=== PATIENT | male | born 1940 | race Caucasian/White ===

== ENCOUNTER 2019-03-12 13:35 | Observation (INO) ==
--- NOTE | 2019-03-12 13:47 | Emergency Department Note ---
Disposition Clinical Impression: [place] (acute kidney injury), Acute renal insufficiency, Dehydration, Weakness UTI (urinary tract infection) Qualifiers: Urinary tract infection type: site unspecified Hematuria presence: without hematuria Qualified Code(s): N39.0 - Urinary tract infection, site not specified Disposition: Admitted As Inpatient Condition: Fair Time of Disposition: 15:36 General Adult HPI - General Chief complaint: ED General Medical Stated complaint: Weakness Time Seen by Provider: 03/12/19 13:43 Source: patient, EMS Mode of arrival: EMS Limitations: no limitations Nursing Notes Reviewed: Yes Vital Signs Reviewed: Yes - History of Present Illness HPI Narrative: Mr. Lynn is a 78M who presents today after an episode of choking on a drink of water this morning. He does have a history of A. fib on anticoagulation, and a CVA from 2 weeks ago. He denies any headache, confusion, facial droop, slurred speech, chest pain, shortness of breath, fever, chills, or recent illnesses. He does report increased generalized weakness. He does report continued chronic right shoulder pain, unchanged from baseline. Pain Scale: 3 - Related Data Home Medications Medication Instructions Recorded Confirmed Atorvastatin Calcium [Lipitor] 80 mg PO DAILY 12/27/18 03/12/19 Budesonide/Formoterol 160/4.5 2 puff IH BID 12/27/18 03/12/19 [Symbicort 160/4.5] Duloxetine HCl [Cymbalta] 60 mg PO QAM 12/27/18 03/12/19 Finasteride [Proscar] 5 mg PO QPM 12/27/18 03/12/19 Isosorbide MONOnitrate [Isosorbide 240 mg PO QPM 12/27/18 03/12/19 Mononitrate ER] Montelukast [Singulair] 10 mg PO QPM 12/27/18 03/12/19 Nitroglycerin 0.4 mg PO Q5M PRN MDD [id number] CALL 12/27/18 03/12/19 911 Omeprazole [PriLOSEC] 20 mg PO QPM 12/27/18 03/12/19 Zolpidem [Ambien] 10 mg PO HS 12/27/18 03/12/19 amLODIPine [Norvasc] 5 mg PO DAILY 12/27/18 03/12/19 Buspirone HCl [Buspar] 7.5 mg PO QPM 02/27/19 03/12/19 Cholecalciferol (D-3) [Vitamin D] 1,000 unit PO DAILY 02/27/19 03/12/19 Dabigatran [Pradaxa] 75 mg PO BID 02/27/19 03/12/19 Furosemide [Lasix] 20 mg PO QAM 02/27/19 03/12/19 Multivit-Min/Folic/Vit K/Lycop 1 tab PO DAILY 02/27/19 03/12/19 [Men's 50 Plus Multivitamin Tab] ALPRAZolam [Xanax 1 MG Tablet] 1 mg PO BID PRN 03/12/19 03/12/19 Previous Rx's Medication Instructions Recorded Acetaminophen [Tylenol] 650 mg PO Q6HR PRN tablet 02/28/19 Carvedilol [Coreg] 12.5 mg PO BIDWM tablet 02/28/19 Clopidogrel [Plavix] 75 mg PO DAILY tablet 02/28/19 Docusate [Colace] 100 mg PO BID PRN capsule 02/28/19 Losartan [Cozaar] 100 mg PO DAILY #30 tablet 02/28/19 Allergies Allergy/AdvReac Type Severity Reaction Status Date / Time epinephrine AdvReac See Verified 02/08/19 09:49 Comments Tizanidine AdvReac Dizziness Verified 02/08/19 09:49 All systems ED: reviewed and negative except as stated. Review of Systems: As Per HPI Constitutional: Reports: weakness. Denies: fever, chills Eyes: Denies: vision change Cardiovascular: Denies: chest pain, palpitations, edema, syncope Respiratory: Denies: cough, dyspnea, wheezes Gastrointestinal: Denies: abdominal pain, nausea, vomiting, diarrhea, constipation, hematemesis, melena, hematochezia Neurological: Reports: weakness. Denies: headache, numbness, paresthesias, confusion, vertigo Past Medical History - Past Medical History Attestation: Yes The following information was validated with the patient. Source: patient, old records reviewed, nursing notes reviewed Medical history: Reports: atrial fibrillation, COPD, coronary artery disease, CVA, GERD, hyperlipidemia, hypertension, renal disease Surgical history: Reports: angioplasty/stent Psychiatric history: Reports: anxiety - Social History Smoking Status: Former smoker Smokeless Tobacco Status: No Alcohol use: Reports: none Drug use: Reports: none Physical Exam Constitutional: Well-developed elderly male in no acute distress Head: Normocephalic, atraumatic Eyes: PERRL, EOMI, sclera anicteric Lungs: Clear to auscultation bilaterally. Nonlabored breathing. No wheezes, r ales, or rhonchi noted. Cardiac: Irregularly irregular rhythm. +S1 +S2 No murmurs, clicks, or rubs noted. GI: Abdomen soft, nontender, nondistended. Extremities: Warm, radial pulses +2 and symmetrical. No cyanosis, pedal edema, or calf tenderness. Neuro: Alert and oriented 3. No focal deficits. Strength 5/5 in all 4 extremities. CN II-XII intact. Sensation intact. No facial droop. Normal speech. Skin: Warm, dry, and intact. - General Limitations: no limitations General appearance: alert, in no apparent distress Course Course Narrative: Initial history and physical exam were unclear for etiology of weakness. CVA less likely with no focal neurological deficits, no slurred speech, no facial droop, and no pronator drift. Speech is clear and pt requested a drink of water shortly after arrival in the ED. Initial evaluation included CBC, BMP, PT/INR, troponin, EKG, chest x-ray, CT head without contrast. Labs revealed [place] with eGFR of 36 which is decreased when compared to patient's baseline eGFR upper 40s-50s with known CKD stage III. Urinalysis was suggestive of UTI. Reflex culture was sent. Pt was subsequently started on 100mL/hr IV fluids with close monitoring with history of CHF and afib. Also started 1 g Rocephin daily. These results were discussed with the patient and recommended admission for [place] with UTI. Patient is agreeable to this treatment plan. Discussed patient's case with hospitalist, Dr. Garrido, who accepted the patient for admission. P atient stable for transfer to floor. - Reevaluation(s) Reevaluation #1: Pt has no new or acute complaints at this time. Discussed labs, EKG, and imaging results. Pt reports he has CKD stage 3 at baseline, however we discussed decreased in eGFR compared to previous labs and visits. Time: 15:27 - Consultations Consultation #1: Discussed pt's case with Dr Garrido, hospitalist, who accepted the patient for admission for [place] and UTI. Time: 15:34 Vital Signs Temperature 98.0 F 03/12/19 13:37 Pulse Rate 93 03/12/19 13:37 Respiratory Rate 20 03/12/19 13:37 Blood Pressure 109/84 03/12/19 13:37 O2 Sat by Pulse Oximetry 99 03/12/19 13:37 Temperature 98.0 F 03/12/19 13:37 Pulse Rate 91 03/12/19 14:47 Respiratory Rate 20 03/12/19 16:08 Blood Pressure 119/81 03/12/19 16:08 O2 Sat by Pulse Oximetry 97 03/12/19 14:47 Oxygen Delivery Oxygen Delivery Room Air Medical Decision Making - Medical Records Medical records reviewed: Yes I reviewed the patient's medical records. - Lab Data Lab results reviewed: Yes I reviewed the patient's lab results. Result diagrams: 03/12/19 13:53 03/12/19 13:53 Lab Results 03/12/19 03/12/19 03/12/19 Range/Units 13:53 13:53 13:53 WBC 7.7 (4.3-11.1) K/mcL RBC 5.40 (4.19-5.50) M/mcL Hgb 15.6 (12.9-16.9) g/dL Hct 46.5 (37.5-50.1) % MCV 86.1 (83.0-100.0) fL MCH 28.9 (28.0-33.3) pg MCHC 33.5 (31.6-35.5) g/dL RDW 14.6 H (11.5-14.5) % Plt Count 156 (140-400) K/mcL MPV 10.1 (9.4-12.4) fL Immature Gran % 0.4 (0-4) % Seg Neutrophils % 73.2 % Lymphocytes % 10.2 % Monocytes % 14.4 % Eosinophils % 1.2 % Basophils % 0.6 % Neutrophils # 5.7 (1.6-8.9) K/mcL Lymphocytes # 0.8 (0.6-4.6) K/mcL Monocytes # 1.1 (0.0-1.3) K/mcL Eosinophils # 0.1 (0.0-0.6) K/mcL Basophils # 0.1 (0.0-0.2) K/mcL PT 14.1 H (9.4-12.1) Seconds INR 1.3 Sodium 133 L (136-145) mEq/L Potassium 4.6 (3.5-5.1) mEq/L Chloride 102 (98-107) mEq/L Carbon Dioxide 25 (23-29) mEq/L BUN 31 H (8-23) mg/dL Creatinine 1.85 H (0.70-1.30) mg/dL Est GFR ( Amer) 43 L (> 60) Est GFR (Non-Af Amer) 36 L (> 60) BUN/Creatinine Ratio 17 (6-26) Glucose 104 (70-105) mg/dL Calculated Osmolality 283 (280-300) Lactic Acid (0.5-2.2) mmol/L Calcium 9.2 (8.6-10.3) mg/dL Total Bilirubin 1.0 (0.3-1.0) mg/dL AST 16 (13-39) Units/L ALT 23 (7-52) Units/L Alkaline Phosphatase 86 (34-104) Units/L Troponin I < 0.03 (< 0.04) ng/mL Serum Total Protein 6.4 (6.4-8.9) g/dL Albumin 3.7 (3.5-5.7) g/dL Globulin 2.7 (2.4-3.5) g/dL Albumin/Globulin Ratio 1.4 (1.1-2.2) Urine Color (Yellow) Urine Clarity (Clear) Urine pH (5.0-8.0) pH Units Ur Specific [place] (1.010-1.025) Urine Protein (Neg-Trace) mg/dL Urine Glucose (UA) (Normal) mg/dL Urine Ketones (Negative) mg/dL Urine Blood (Negative) Urine Nitrite (Negative) Urine Bilirubin (Negative) Urine Urobilinogen (Normal) mg/dL Ur Leukocyte Esterase (Negative) Urine Microscopic RBC (0-3) per hpf Urine Microscopic WBC (0-3) per hpf Ur Squamous Epith Cells (None-Few) per lpf Amorphous Sediment (Few) Urine Bacteria (None-Few) per hpf Hyaline Casts (None-Few) per lpf Ur Culture Indicated? (NO) 03/12/19 03/12/19 Range/Units 13:53 14:24 WBC (4.3-11.1) K/mcL RBC (4.19-5.50) M/mcL Hgb (12.9-16.9) g/dL Hct (37.5-50.1) % MCV (83.0-100.0) fL MCH (28.0-33.3) pg MCHC (31.6-35.5) g/dL RDW (11.5-14.5) % Plt Count (140-400) K/mcL MPV (9.4-12.4) fL Immature Gran % (0-4) % Seg Neutrophils % % Lymphocytes % % Monocytes % % Eosinophils % % Basophils % % Neutrophils # (1.6-8.9) K/mcL Lymphocytes # (0.6-4.6) K/mcL Monocytes # (0.0-1.3) K/mcL Eosinophils # (0.0-0.6) K/mcL Basophils # (0.0-0.2) K/mcL PT (9.4-12.1) Seconds INR Sodium (136-145) mEq/L Potassium (3.5-5.1) mEq/L Chloride (98-107) mEq/L Carbon Dioxide (23-29) mEq/L BUN (8-23) mg/dL Creatinine (0.70-1.30) mg/dL Est GFR ( Amer) (> 60) Est GFR (Non-Af Amer) (> 60) BUN/Creatinine Ratio (6-26) Glucose (70-105) mg/dL Calculated Osmolality (280-300) Lactic Acid 1.2 (0.5-2.2) mmol/L Calcium (8.6-10.3) mg/dL Total Bilirubin (0.3-1.0) mg/dL AST (13-39) Units/L ALT (7-52) Units/L Alkaline Phosphatase (34-104) Units/L Troponin I (< 0.04) ng/mL Serum Total Protein (6.4-8.9) g/dL Albumin (3.5-5.7) g/dL Globulin (2.4-3.5) g/dL Albumin/Globulin Ratio (1.1-2.2) Urine Color Yellow (Yellow) Urine Clarity Cloudy A (Clear) Urine pH 5.5 (5.0-8.0) pH Units Ur Specific [place] 1.021 (1.010-1.025) Urine Protein 100 H (Neg-Trace) mg/dL Urine Glucose (UA) Normal (Normal) mg/dL Urine Ketones Negative (Negative) mg/dL Urine Blood Negative (Negative) Urine Nitrite Negative (Negative) Urine Bilirubin Negative (Negative) Urine Urobilinogen Normal (Normal) mg/dL Ur Leukocyte Esterase Large H (Negative) Urine Microscopic RBC 0-3 (0-3) per hpf Urine Microscopic WBC 50-100 H (0-3) per hpf Ur Squamous Epith Cells Many H (None-Few) per lpf Amorphous Sediment Few (Few) Urine Bacteria None Seen (None-Few) per hpf Hyaline Casts Few (None-Few) per lpf Ur Culture Indicated? NO. A (NO) - Radiology Data Radiology results reviewed: Yes I reviewed the patient's radiology results. Chest X-Ray 03/12/19 13:43 IMPRESSION: Mild elevation of the right hemidiaphragm. Otherwise, stable chest D/ / Adebayo Lafleur MD / Adebayo Lafleur MD Interpreting Provider: Adebayo Lafleur MD Head CT 03/12/19 13:45 IMPRESSION: No acute intracranial abnormality. Senescent changes. D/ / Ron Mendoza / Ron Mendoza Interpreting Provider: Ron Mendoza - EKG Data EKG #1 EKG attestation: Yes I reviewed and interpreted this EKG. Rhythm: A.Fib, PVC's [place]/QRS: left axis deviation When compared to previous EKG there are: no significant changes Attestation Statement - Attestation Attestation: I, Gregory Doe DO, examined this patient [id number] and my medical decision-making was reviewed with Elías Black PGY-1, Resident Physician. I agree with the documented findings, disposition and treatment plan as described except to the extent set forth below. I personally supervised and was present for the gregorio/critical portions of the procedures completed by the resident do cumented below. Please see my progress notes for details.
[2019-03-12 14:02] LABS: Hematocrit 46.5 % (37.5-50.1); Hemoglobin 15.6 g/dL (12.9-16.9); Mean Corpuscular HGB Conc 33.5 g/dL (31.6-35.5); Mean Corpuscular Hemoglobin 28.9 pg (28.0-33.3); Mean Corpuscular Volume 86.1 fL (83.0-100.0); Mean Platelet Volume 10.1 fL (9.4-12.4); Platelet Count 156 K/mcL (140-400); Red Cell Distribution Width 14.6 % (11.5-14.5); Segmented Neutrophils % 73.2 %
[2019-03-12 14:03] LABS: Basophils # 0.1 K/mcL (0.0-0.2); Basophils % 0.6 %; Eosinophils # 0.1 K/mcL (0.0-0.6); Eosinophils % 1.2 %; Immature Granulocytes % 0.4 % (0-4); Lymphocytes # 0.8 K/mcL (0.6-4.6); Lymphocytes % 10.2 %; Monocytes # 1.1 K/mcL (0.0-1.3); Monocytes % 14.4 %; Neutrophils # 5.7 K/mcL (1.6-8.9)
[2019-03-12 14:09] LABS: INR 1.3; Prothrombin Time 14.1 Seconds (9.4-12.1)
--- NOTE | 2019-03-12 14:09 | Emergency Department Note ---
Disposition Clinical Impression: Acute renal insufficiency, Dehydration, Weakness UTI (urinary tract infection) Qualifiers: Urinary tract infection type: site unspecified Hematuria presence: without hematuria Qualified Code(s): N39.0 - Urinary tract infection, site not specified Disposition: Admitted As Inpatient Condition: Fair Forms: ED Satisfaction Letter, Work/School Release Time of Disposition: 15:37 General Adult HPI - General Chief complaint: ED General Medical Stated complaint: Weakness Time Seen by Provider: 03/12/19 13:43 Source: patient, EMS Mode of arrival: EMS Limitations: no limitations - History of Present Illness Pain Scale: 3 - Related Data Home Medications Medication Instructions Recorded Confirmed Atorvastatin Calcium [Lipitor] 80 mg PO DAILY 12/27/18 02/27/19 Budesonide/Formoterol 160/4.5 2 puff IH BID 12/27/18 02/27/19 [Symbicort 160/4.5] Duloxetine HCl [Cymbalta] 60 mg PO QAM 12/27/18 02/27/19 Finasteride [Proscar] 5 mg PO QPM 12/27/18 02/27/19 Isosorbide MONOnitrate [Isosorbide 240 mg PO QPM 12/27/18 02/27/19 Mononitrate ER] Montelukast [Singulair] 10 mg PO DAILY 12/27/18 02/27/19 Nitroglycerin 0.4 mg PO Q5M PRN MDD [id number] CALL 12/27/18 02/27/19 911 Omeprazole [PriLOSEC] 20 mg PO QPM 12/27/18 02/27/19 Zolpidem [Ambien] 10 mg PO HS 12/27/18 02/27/19 amLODIPine [Norvasc] 5 mg PO DAILY 12/27/18 02/27/19 Buspirone HCl [Buspar] 7.5 mg PO QPM 02/27/19 02/27/19 Cholecalciferol (D-3) [Vitamin D] 1,000 unit PO DAILY 02/27/19 02/27/19 Dabigatran [Pradaxa] 75 mg PO BID 02/27/19 02/27/19 Furosemide [Lasix] 20 mg PO QPM 02/27/19 02/27/19 Multivit-Min/Folic/Vit K/Lycop 1 tab PO DAILY 02/27/19 02/27/19 [Men's 50 Plus Multivitamin Tab] ALPRAZolam [Xanax 1 MG Tablet] 1 mg PO BID PRN 03/12/19 03/12/19 Previous Rx's Medication Instructions Recorded Acetaminophen [Tylenol] 650 mg PO Q6HR PRN tablet 02/28/19 Carvedilol [Coreg] 12.5 mg PO BIDWM tablet 02/28/19 Clopidogrel [Plavix] 75 mg PO DAILY tablet 02/28/19 Docusate [Colace] 100 mg PO BID PRN capsule 02/28/19 Losartan [Cozaar] 100 mg PO DAILY #30 tablet 02/28/19 Allergies Allergy/AdvReac Type Severity Reaction Status Date / Time epinephrine AdvReac See Verified 02/08/19 09:49 Comments Tizanidine AdvReac Dizziness Verified 02/08/19 09:49 Past Medical History - Past Medical History Medical history: Reports: atrial fibrillation, COPD, coronary artery disease, CVA, GERD, hyperlipidemia, hypertension, renal disease Surgical history: Reports: angioplasty/stent Psychiatric history: Reports: anxiety - Social History Smoking Status: Former smoker Smokeless Tobacco Status: No Alcohol use: Reports: none Drug use: Reports: none Physical Exam - General Limitations: no limitations General appearance: alert, in no apparent distress Course Vital Signs Temperature 98.0 F 03/12/19 13:37 Pulse Rate 93 03/12/19 13:37 Respiratory Rate 20 03/12/19 13:37 Blood Pressure 109/84 03/12/19 13:37 O2 Sat by Pulse Oximetry 99 03/12/19 13:37 Temperature 98.0 F 03/12/19 13:37 Pulse Rate 91 03/12/19 14:47 Respiratory Rate 16 03/12/19 14:47 Blood Pressure 109/75 03/12/19 14:47 O2 Sat by Pulse Oximetry 97 03/12/19 14:47 Oxygen Delivery Oxygen Delivery Room Air Medical Decision Making - Lab Data Result diagrams: 03/12/19 13:53 03/12/19 13:53 Lab Results 03/12/19 03/12/19 03/12/19 Range/Units 13:53 13:53 13:53 WBC 7.7 (4.3-11.1) K/mcL RBC 5.40 (4.19-5.50) M/mcL Hgb 15.6 (12.9-16.9) g/dL Hct 46.5 (37.5-50.1) % MCV 86.1 (83.0-100.0) fL MCH 28.9 (28.0-33.3) pg MCHC 33.5 (31.6-35.5) g/dL RDW 14.6 H (11.5-14.5) % Plt Count 156 (140-400) K/mcL MPV 10.1 (9.4-12.4) fL Immature Gran % 0.4 (0-4) % Seg Neutrophils % 73.2 % Lymphocytes % 10.2 % Monocytes % 14.4 % Eosinophils % 1.2 % Basophils % 0.6 % Neutrophils # 5.7 (1.6-8.9) K/mcL Lymphocytes # 0.8 (0.6-4.6) K/mcL Monocytes # 1.1 (0.0-1.3) K/mcL Eosinophils # 0.1 (0.0-0.6) K/mcL Basophils # 0.1 (0.0-0.2) K/mcL PT 14.1 H (9.4-12.1) Seconds INR 1.3 Sodium 133 L (136-145) mEq/L Potassium 4.6 (3.5-5.1) mEq/L Chloride 102 (98-107) mEq/L Carbon Dioxide 25 (23-29) mEq/L BUN 31 H (8-23) mg/dL Creatinine 1.85 H (0.70-1.30) mg/dL Est GFR ( Amer) 43 L (> 60) Est GFR (Non-Af Amer) 36 L (> 60) BUN/Creatinine Ratio 17 (6-26) Glucose 104 (70-105) mg/dL Calculated Osmolality 283 (280-300) Lactic Acid (0.5-2.2) mmol/L Calcium 9.2 (8.6-10.3) mg/dL Total Bilirubin 1.0 (0.3-1.0) mg/dL AST 16 (13-39) Units/L ALT 23 (7-52) Units/L Alkaline Phosphatase 86 (34-104) Units/L Troponin I < 0.03 (< 0.04) ng/mL Serum Total Protein 6.4 (6.4-8.9) g/dL Albumin 3.7 (3.5-5.7) g/dL Globulin 2.7 (2.4-3.5) g/dL Albumin/Globulin Ratio 1.4 (1.1-2.2) Urine Color (Yellow) Urine Clarity (Clear) Urine pH (5.0-8.0) pH Units Ur Specific [place] (1.010-1.025) Urine Protein (Neg-Trace) mg/dL Urine Glucose (UA) (Normal) mg/dL Urine Ketones (Negative) mg/dL Urine Blood (Negative) Urine Nitrite (Negative) Urine Bilirubin (Negative) Urine Urobilinogen (Normal) mg/dL Ur Leukocyte Esterase (Negative) Urine Microscopic RBC (0-3) per hpf Urine Microscopic WBC (0-3) per hpf Ur Squamous Epith Cells (None-Few) per lpf Amorphous Sediment (Few) Urine Bacteria (None-Few) per hpf Hyaline Casts (None-Few) per lpf Ur Culture Indicated? (NO) 03/12/19 03/12/19 Range/Units 13:53 14:24 WBC (4.3-11.1) K/mcL RBC (4.19-5.50) M/mcL Hgb (12.9-16.9) g/dL Hct (37.5-50.1) % MCV (83.0-100.0) fL MCH (28.0-33.3) pg MCHC (31.6-35.5) g/dL RDW (11.5-14.5) % Plt Count (140-400) K/mcL MPV (9.4-12.4) fL Immature Gran % (0-4) % Seg Neutrophils % % Lymphocytes % % Monocytes % % Eosinophils % % Basophils % % Neutrophils # (1.6-8.9) K/mcL Lymphocytes # (0.6-4.6) K/mcL Monocytes # (0.0-1.3) K/mcL Eosinophils # (0.0-0.6) K/mcL Basophils # (0.0-0.2) K/mcL PT (9.4-12.1) Seconds INR Sodium (136-145) mEq/L Potassium (3.5-5.1) mEq/L Chloride (98-107) mEq/L Carbon Dioxide (23-29) mEq/L BUN (8-23) mg/dL Creatinine (0.70-1.30) mg/dL Est GFR ( Amer) (> 60) Est GFR (Non-Af Amer) (> 60) BUN/Creatinine Ratio (6-26) Glucose (70-105) mg/dL Calculated Osmolality (280-300) Lactic Acid 1.2 (0.5-2.2) mmol/L Calcium (8.6-10.3) mg/dL Total Bilirubin (0.3-1.0) mg/dL AST (13-39) Units/L ALT (7-52) Units/L Alkaline Phosphatase (34-104) Units/L Troponin I (< 0.04) ng/mL Serum Total Protein (6.4-8.9) g/dL Albumin (3.5-5.7) g/dL Globulin (2.4-3.5) g/dL Albumin/Globulin Ratio (1.1-2.2) Urine Color Yellow (Yellow) Urine Clarity Cloudy A (Clear) Urine pH 5.5 (5.0-8.0) pH Units Ur Specific [place] 1.021 (1.010-1.025) Urine Protein 100 H (Neg-Trace) mg/dL Urine Glucose (UA) Normal (Normal) mg/dL Urine Ketones Negative (Negative) mg/dL Urine Blood Negative (Negative) Urine Nitrite Negative (Negative) Urine Bilirubin Negative (Negative) Urine Urobilinogen Normal (Normal) mg/dL Ur Leukocyte Esterase Large H (Negative) Urine Microscopic RBC 0-3 (0-3) per hpf Urine Microscopic WBC 50-100 H (0-3) per hpf Ur Squamous Epith Cells Many H (None-Few) per lpf Amorphous Sediment Few (Few) Urine Bacteria None Seen (None-Few) per hpf Hyaline Casts Few (None-Few) per lpf Ur Culture Indicated? NO. A (NO) Attestation Statement - Attestation Attestation: I, Gregory Doe DO, examined this patient [id number] and my medical decision-making was reviewed with Elías Black PGY-1, Resident Physician. I agree with the documented findings, disposition and treatment plan as described except to the extent set forth below. I personally supervised and was present for the gregorio/critical portions of the procedures completed by the resident documented below. Please see my progress notes for details. 78-year-old male presents via EMS for evaluation of generalized weakness and concern for possible CVA. Patient had a recent cerebrovascular incident earlier this month and was diagnosed by MRI. Patient denies any falls trauma or injury. He has not had any fevers or chills. He has not fallen or injured himself. Denies any chest pain or shortness of breath at this point. Denies any nausea vomiting or diarrhea. No specific vision changes but he does have a slight headache. He does chronically have right-sided shoulder pain and intermittent headaches at baseline. Patient is otherwise resting comfortably. He has continued all his home medications as they are previously prescribed including his anticoagulation Pradaxa. Vital signs were stable during transport. Patient is alert and oriented answering questions appropriately on arrival. Head is atraumatic. Pupils are equal and reactive. Extraocular muscles are intact. Oropharynx is patent. Trachea is midline. Lungs are clear to auscultation. Chronic atrial fibrillation is noted on evaluation this time. Abdomen is soft nontender nondistended with no pulsatile masses or lesions. Extremities are normal. Patient has no signs of swelling or asymmetry or weakness noted at this point. He has no reproducible facial asymmetry a slight amount of left-sided lip leg is noted but is unable to be confirmed as chronic or new at this time. He does not have any acute described neurologic symptoms at this point. Patient will be evaluated with a detailed workup looking for infectious etiology or metabolic derangements intracranial pathology that could account for his presenting described weakness and symptoms here today. Otherwise family will be contacted to confirm the presentation this point me asured the patient is acting appropriately. Patient is otherwise stable. CBC chemistry troponin and BNP blood cultures urinalysis will be collected this time. Fluids will be started. CT imaging the head and chest x-ray will be ordered. Disposition pending full workup and treatment course. See detailed documentation of the physical exam, medical intervention, medical decision- making and disposition in the resident physician's note. No critical care applied the patient's treatment course at this time. Symptomatic control and reevaluation will be established. 1445 Patient is found to have acute renal insufficiency. He also has what appears to be urinary tract infection. 1 g Rocephin will be given. Patient has been started on passive fluids with his known history of congestive heart failure and atrial fibrillation. Close monitoring will be completed at this point. Patient was asking for water when he first arrived here secondary to dry mouth's at this is consistent with his describes symptoms. Otherwise he is only complaining of generalized weakness and has not shown any acute neurologic deficits or symptoms. Patient will be monitored and admission process will be completed for dehydration and urinary tract infection 1515 Patient was discussed with the hospitalist Dr. Rankin. Detailed review the presentation symptoms medical history as well as medical intervention were discussed at length. No other acute concerns or issues noted this time. Patient is otherwise clinically stable. All the patient's presenting symptoms here today are secondary to his dehydration urinary tract infection and acute renal insufficiency. Patient will be monitored here in the emergency department until the admission process is completed.
[2019-03-12 14:25] LABS: Alanine Aminotransferase 23 Units/L (7-52); Albumin 3.7 g/dL (3.5-5.7); Albumin/Globulin Ratio 1.4 (1.1-2.2); Alkaline Phosphatase 86 Units/L (34-104); Aspartate Amino Transferase 16 Units/L (13-39); BUN/Creatinine Ratio 17 (6-26); Blood Urea Nitrogen 31 mg/dL (8-23); Calcium 9.2 mg/dL (8.6-10.3); Carbon Dioxide 25 mEq/L (23-29); Chloride 102 mEq/L (98-107); Globulin 2.7 g/dL (2.4-3.5); Glucose 104 mg/dL (70-105); Osmolality,Calculated 283 (280-300); Potassium 4.6 mEq/L (3.5-5.1); Sodium 133 mEq/L (136-145); Total Protein 6.4 g/dL (6.4-8.9); eGFR For Non-African Americans 36 (> 60)
[2019-03-12 14:26] LABS: Troponin I < 0.03 ng/mL (< 0.04)
[2019-03-12 14:37] LABS: Bilirubin,Urine Negative (Negative); Blood,Urine Negative (Negative); Clarity,Urine Cloudy (Clear); Color,Urine Yellow (Yellow); Glucose,Urine (UA) Normal (Normal); Ketones,Urine Negative (Negative); Leukocyte Esterase,Urine Large (Negative); Nitrite,Urine Negative (Negative); PH,Urine 5.5 pH Units (5.0-8.0); Protein,Urine 100 mg/dL (Neg-Trace); Specific Gravity,Urine 1.021 (1.010-1.025); Urobilinogen,Urine Normal (Normal)
[2019-03-12 14:40] LABS: Bacteria,Urine None Seen per hpf (None-Few); RBC,Urine 0-3 per hpf (0-3); Squamous Epithelial Cell,Urine Many per lpf (None-Few); WBC,Urine 50-100 per hpf (0-3)
[2019-03-12] MEDS ORDERED: 0.9 % Sodium Chloride 1,000 ML IVC SCH (14:45)
[2019-03-12 14:56] LABS: Amorphous Sediment,Urine Few (Few); Hyaline Casts,Urine Few per lpf (None-Few)
[2019-03-12] MEDS: cefTRIAXone 1,000 MG in Water for inj. (sterile) 20 ML 10 ML IVP SCH (15:07)
--- NOTE | 2019-03-12 16:12 | Internal Med History&Physical ---
<Adebayo Grajeda - Last Filed: 03/12/19 16:57> Date of Encounter: 03/12/19 Internal Medicine - H&P: HPI History of present illness: Mr. Lynn is a 78 year old male Internal Medicine - H&P: Meds Atorvastatin Calcium [Lipitor] 80 mg PO DAILY 12/27/18 [History] Budesonide/Formoterol 160/4.5 [Symbicort 160/4.5] 2 puff IH BID 12/27/18 [History] Duloxetine HCl [Cymbalta] 60 mg PO QAM 12/27/18 [History] Finasteride [Proscar] 5 mg PO QPM 12/27/18 [History] Isosorbide MONOnitrate [Isosorbide Mononitrate ER] 240 mg PO QPM 12/27/18 [History] Montelukast [Singulair] 10 mg PO QPM 12/27/18 [History] Nitroglycerin 0.4 mg PO Q5M PRN MDD [id number] CALL 911 12/27/18 [History] Omeprazole [PriLOSEC] 20 mg PO QPM 12/27/18 [History] Zolpidem [Ambien] 10 mg PO HS 12/27/18 [History] amLODIPine [Norvasc] 5 mg PO DAILY 12/27/18 [History] Buspirone HCl [Buspar] 7.5 mg PO QPM 02/27/19 [History] Cholecalciferol (D-3) [Vitamin D] 1,000 unit PO DAILY 02/27/19 [History] Dabigatran [Pradaxa] 75 mg PO BID 02/27/19 [History] Furosemide [Lasix] 20 mg PO QAM 02/27/19 [History] Multivit-Min/Folic/Vit K/Lycop [Men's 50 Plus Multivitamin Tab] 1 tab PO DAILY 02/27/19 [History] Acetaminophen [Tylenol] 650 mg PO Q6HR PRN tablet 02/28/19 [Rx] Carvedilol [Coreg] 12.5 mg PO BIDWM tablet 02/28/19 [Rx] Clopidogrel [Plavix] 75 mg PO DAILY tablet 02/28/19 [Rx] Docusate [Colace] 100 mg PO BID PRN capsule 02/28/19 [Rx] Losartan [Cozaar] 100 mg PO DAILY #30 tablet 02/28/19 [Rx] ALPRAZolam [Xanax 1 MG Tablet] 1 mg PO BID PRN 03/12/19 [History] Allergy/AdvReac Type Severity Reaction Status Date / Time epinephrine AdvReac See Verified 02/08/19 09:49 Comments Tizanidine AdvReac Dizziness Verified 02/08/19 09:49 All Systems PM: A 10-system review of systems was performed and is negative for pertinent findings except as documented above in the HPI. - Constitutional Vitals: Temp Pulse Resp BP Pulse Ox 98.0 F 91 20 119/81 97 03/12/19 13:37 03/12/19 14:47 03/12/19 16:08 03/12/19 16:08 03/12/19 14:47 Internal Med - H&P Results - Labs CBC & Chem 7: 03/12/19 13:53 03/12/19 13:53 Labs: Short CBC 03/12/19 Range/Units 13:53 WBC 7.7 (4.3-11.1) K/mcL Hgb 15.6 (12.9-16.9) g/dL Hct 46.5 (37.5-50.1) % Plt Count 156 (140-400) K/mcL Neutrophils # 5.7 (1.6-8.9) K/mcL BMP 03/12/19 13:53 Sodium 133 L Potassium 4.6 Chloride 102 Carbon Dioxide 25 BUN 31 H Creatinine 1.85 H Glucose 104 Calcium 9.2 Cardiac Enzymes 03/12/19 Range/Units 13:53 Troponin I < 0.03 (< 0.04) ng/mL Liver Function 03/12/19 Range/Units 13:53 Total Bilirubin 1.0 (0.3-1.0) mg/dL AST 16 (13-39) Units/L ALT 23 (7-52) Units/L Alkaline Phosphatase 86 (34-104) Units/L Albumin 3.7 (3.5-5.7) g/dL Urine 03/12/19 Range/Units 14:24 Urine Color Yellow (Yellow) Urine Clarity Cloudy A (Clear) Urine pH 5.5 (5.0-8.0) pH Units Ur Specific [place] 1.021 (1.010-1.025) Urine Protein 100 H (Neg-Trace) mg/dL Urine Glucose (UA) Normal (Normal) mg/dL - Impressions ITS Impressions Chest X-Ray 03/12/19 13:43 IMPRESSION: Mild elevation of the right hemidiaphragm. Otherwise, stable chest D/ / Adebayo Lafleur MD / Adebayo Lafleur MD Interpreting Provider: Adebayo Lafleur MD Head CT 03/12/19 13:45 IMPRESSION: No acute intracranial abnormality. Senescent changes. D/ / Ron Mendoza / Ron Mendoza Interpreting Provider: Ron Mendoza - Time Spent With Patient Total time spent is greater than 50% in coordination of care (as documented) at patient's floor/unit and/or counseling patient: - Attending Attestation I examined this patient and my medical decision-making was reviewed with the Resident Physician. I agree with the documented findings, disposition and treatment plan as described except to the extent set forth below. Patient is a 78-year-old male with history of chronic atrial fibrillation, coronary artery disease, chronic systolic heart failure, recent CVA who presented from [facility] with weakness and urinary frequency. He states he has been weak since his stroke approximately 4 weeks ago but over the last several days this is worsened. Also reports urinary frequency. On exam he is alert and oriented. Mucous membranes appear dry. Heart is irregularly irregular with no murmurs, lungs are clear to auscultation. Abdomen is soft and nontender with normoactive bowel sounds, there is no lower extremity edema. Laboratory evaluation reveals acute on chronic kidney disease stage III, evidence of UTI and urinalysis but no leukocytosis. Chest x-ray reviewed and is unremarkable as is head CT. Assessment and plan: [place] on CKD stage III: Likely due to dehydration in the setting of continued furosemide use. Creatinine mildly elevated above baseline. IV fluids with normal saline at 100 mL per hour for 1 L of fluids total. Recheck in the morning, protein noted in UA, check urine protein/creatinine ratio, urine sodium, urine creatinine, urine osmolality. Urinary tract infection: Patient has leukocyte esterase and WBCs in urine and is symptomatic with urinary frequency. Of note patient did have recent greenlight prostatectomy. Appears mild as the patient is not febrile, no leukocytosis. Patient did have Enterococcus faecalis about a month ago, will start on Macrobid, await culture results Chronic atrial fibrillation Chronic systolic Heart failure Coronary artery disease History CVA COPD Hypertension <Kylie Ojeda Tammy - Last Filed: 03/12/19 17:37> Date of Encounter: 03/12/19 Time of Encounter: 04:00 Internal Medicine - H&P: HPI Chief complaint: weakness/urinary incontience Admitted From: Long-term Nursing Facility Plans for Post Hospital Care: Transfer Inp Rehab Fac History of present illness: Mr. Lynn is a 78 year old male who presented today after having nausea and vomiting and just feeling weak. He states that he has been having urinary incontinence, burning with urination, lower abdominal pain with urination. He was discharged on February 28 for acute CVA. Recent history of greenlight prosta tectomy 3 weeks ago. Patient has a past medical history of hypertension, hyperlipidemia, COPD on home oxygen, A, A. fib on per DEXA, CAD, CHF, stage III CKD Labs at the ED showed BUN 31, creatinine 1.85, GFR 36 and hyponatremia. On further review of labs. Patient's kidney function is decreased compared to his norm, hyponatremia is close to patient's baseline. CT head showed no acute abnormalities, chest x-ray only showed hemidiaphragm on right side slightly elevated. Urinalysis showed increased protein, large leukocyte esterase, white blood cells. Patient was admitted for [place] and UTI. Was given 1 dose of Rocephin in the ED and started on IV fluids. Patient was seen and examined at bedside. He states that he has been quite thirsty but has nausea and vomiting have resolved. He also notices that his heart feels "fluttery" He does state he occasionally has diarrhea this is his norm. Denies any chest pain, shortness of breath that is worse than his normal from COPD, lightheadedness, dizziness, abdominal pain currently. Past Med Surg Social Fam HX - Past Medical History Medical history: atrial fibrillation, COPD, coronary artery disease, GERD, hyperlipidemia, hypertension, renal disease Additional medical history: AAA Psychiatric history: anxiety - Past Surgical History Surgical History: angioplasty/stent Additional surgical history: stent x 2. CABG x 2. broken arm - Social History Smoking Status: Former smoker Smokeless Tobacco Status: No Alcohol use: none Drug use: none All Systems PM: A 10-system review of systems was performed and is negative for pertinent findings except as documented above in the HPI. - Constitutional Constitutional: fatigue, weakness, no chills, no fever(s) - EENT Eyes: no change in vision, no loss of vision - Cardiovascular Cardiovascular ROS IM: irregular heart rhythm, palpitations, no chest pain - Respiratory Respiratory: dyspnea, no cough, no wheezing, no pain on inspiration - Gastrointestinal Gastrointestinal: diarrhea, nausea, vomiting, no change in bowel habits, no constipation - Genitourinary Genitourinary ROS male: difficulty urinating, dysuria, urinary frequency, ur inary incontinence - Musculoskeletal Musculoskeletal ROS IM: neck pain (Chronic) - Integumentary Integumentary IM: no non-healing lesions, no rash, no unusual bruising - Neurological Neurological ROS: weakness (In legs post stroke) - Constitutional Vitals: Temp Pulse Resp BP Pulse Ox 98.0 F 91 20 119/81 97 03/12/19 13:37 03/12/19 14:47 03/12/19 16:08 03/12/19 16:08 03/12/19 14:47 Exam: General: AAO 3, no acute distress, answers questions appropriately Head: normocephalic, atraumatic Eyes: VIVIAN, no icterus Mouth: Mucous membranes dry Neck: Trachea midline Cardio: Regular rate and irregular rhythm, no mumurs, rubs, or gallops Respiratory: CTAB, no wheezing, rhonchi, rales Abd: normal bowel sounds, no gaurding or rigidity Extremties: no pedal edema, pulses equal bilaterally, warm Skin: warm, dry, intact Internal Med - H&P Results - Labs CBC & Chem 7: 03/12/19 13:53 03/12/19 13:53 Labs: Short CBC 03/12/19 Range/Units 13:53 WBC 7.7 (4.3-11.1) K/mcL Hgb 15.6 (12.9-16.9) g/dL Hct 46.5 (37.5-50.1) % Plt Count 156 (140-400) K/mcL Neutrophils # 5.7 (1.6-8.9) K/mcL BMP 03/12/19 13:53 Sodium 133 L Potassium 4.6 Chloride 102 Carbon Dioxide 25 BUN 31 H Creatinine 1.85 H Glucose 104 Calcium 9.2 Cardiac Enzymes 03/12/19 Range/Units 13:53 Troponin I < 0.03 (< 0.04) ng/mL Liver Function 03/12/19 Range/Units 13:53 Total Bilirubin 1.0 (0.3-1.0) mg/dL AST 16 (13-39) Units/L ALT 23 (7-52) Units/L Alkaline Phosphatase 86 (34-104) Units/L Albumin 3.7 (3.5-5.7) g/dL Urine 03/12/19 Range/Units 14:24 Urine Color Yellow (Yellow) Urine Clarity Cloudy A (Clear) Urine pH 5.5 (5.0-8.0) pH Units Ur Specific [place] 1.021 (1.010-1.025) Urine Protein 100 H (Neg-Trace) mg/dL Urine Glucose (UA) Normal (Normal) mg/dL - Impressions ITS Impressions Chest X-Ray 03/12/19 13:43 IMPRESSION: Mild elevation of the right hemidiaphragm. Otherwise, stable chest D/ / Adebayo Lafleur MD / Adebayo Lafleur MD Interpreting Provider: Adebayo Lafleur MD Head CT 03/12/19 13:45 IMPRESSION: No acute intracranial abnormality. Senescent changes. D/ / Ron Mendoza / Ron Mendoza Interpreting Provider: Ron Mendoza - Assessment and Plan (1) UTI (urinary tract infection) Current Visit: Yes Status: Acute Assessment and plan: Patient reports symptoms of urinary incontinence, pain with urination, lower abdominal pain with urination since prostatectomy 3 weeks ago UA showed protein, large [place] esterase, white blood cells Patient is afebrile with no leukocytosis Patient had positive culture for enterococcus for Cialis that was pansensitive about a month ago Begin Macrobid Urine culture pending Qualifiers: Urinary tract infection type: site unspecified Hematuria presence: without hematuria Qualified Code(s): N39.0 - Urinary tract infection, site not specified (2) Acute kidney injury superimposed on chronic kidney disease Current Visit: Yes Status: Acute Assessment and plan: Secondary dehydration likely due to Lasix use Creatinine elevated above his baseline at 1.85 IV fluids 100 mL/h for 1 L of fluids totalnormal saline We will recheck in morning We will check a urine protein creatinine ratio, urine sodium, urine creatinine, urine osmolality due to protein on UA Retroperitoneal ultrasound to rule out hydronephrosis (3) Dehydration Current Visit: Yes Status: Acute Assessment and plan: Likely due to Lasix use and UTI IV fluids as above (4) Weakness Current Visit: Yes Status: Acute Assessment and plan: Chronic since admission since admission for CVA PT/OT (5) Chronic systolic heart failure Current Visit: Yes Status: Chronic Assessment and plan: Patient's last echo showed LVEF 45-50% We will monitor patient's fluids to prevent acute exacerbation (6) COPD (chronic obstructive pulmonary disease) Current Visit: No Status: Chronic Assessment and plan: Continue home medications including Symbicort Qualifiers: COPD type: unspecified COPD Qualified Code(s): J44.9 - Chronic obstructive pulmonary disease, unspecified (7) Chronic a-fib Current Visit: No Status: Chronic Assessment and plan: Continue Pradaxa and carvedilol (8) Coronary artery disease Current Visit: No Status: Chronic Assessment and plan: Known history of coronary artery disease Continue statin, beta bernard Qualifiers: Coronary Disease-Associated Artery/Lesion type: unspecified vessel or lesion type [place] vs. transplanted heart: [place] heart Associated angina: without angina Qualified Code(s): I25.10 - Atherosclerotic heart disease of [place] coronary artery without angina pectoris (9) Hyperlipidemia Current Visit: No Status: Chronic Assessment and plan: Continue home statin Qualifiers: Hyperlipidemia type: unspecified Qualified Code(s): E78.5 - Hyperlipidemia, unspecified (10) Hypertension Current Visit: No Status: Chronic Assessment and plan: We will hold losartan currently due to nephrotoxicity Continue to monitor blood pressures Qualifiers: Hypertension type: essential hypertension Qualified Code(s): I10 - Essential (primary) hypertension (11) History of CVA (cerebrovascular accident) Current Visit: Yes Status: Chronic Assessment and plan: Had acute CVA and was discharged on February 28 on Pradaxa as well as carvedilol increased to 12.5 twice a day, losartan increased to 100 mg daily. We will continue Pradaxa and carvedilol but will hold losartan to to nephrotoxic ity We will do PTOT for his weakness Continue to monitor (12) DVT prophylaxis Current Visit: Yes Status: Acute Assessment and plan: On Pradaxa - Time Spent With Patient Total time spent is greater than 50% in coordination of care (as documented) at patient's floor/unit and/or counseling patient:
[2019-03-12] MEDS ORDERED: Naloxone 0.4 MG/ML INJ IVP PRN (16:56)
[2019-03-12] MEDS ORDERED: Acetaminophen 325 MG TABLET PO PRN (17:05)
[2019-03-12] MEDS: Finasteride 5 MG TABLET PO SCH (18:15)
[2019-03-12] MEDS: Isosorbide MONOnitrate (24 HR) 60 MG TAB.ER.24H PO SCH (18:15)
[2019-03-12] MEDS: Budesonide/Formoterol 160/4.5 1 PUFF INH IH SCH (20:34)
[2019-03-12] MEDS: *HR* Dabigatran 75 MG CAPSULE PO SCH (20:56)
[2019-03-12] MEDS: Melatonin 3 MG TABLET PO PRN (21:01)
[2019-03-13 05:31] LABS: Basophils # 0.1 K/mcL (0.0-0.2); Basophils % 0.8 %; Eosinophils # 0.1 K/mcL (0.0-0.6); Eosinophils % 1.6 %; Hematocrit 43.5 % (37.5-50.1); Hemoglobin 14.3 g/dL (12.9-16.9); Immature Granulocytes % 0.5 % (0-4); Lymphocytes # 0.7 K/mcL (0.6-4.6); Lymphocytes % 9.5 %; Mean Corpuscular HGB Conc 32.9 g/dL (31.6-35.5); Mean Corpuscular Hemoglobin 28.3 pg (28.0-33.3); Mean Corpuscular Volume 86.1 fL (83.0-100.0); Monocytes % 13.9 %; Neutrophils # 5.5 K/mcL (1.6-8.9); Platelet Count 147 K/mcL (140-400); Red Blood Count 5.05 M/mcL (4.19-5.50); Red Cell Distribution Width 14.5 % (11.5-14.5); Segmented Neutrophils % 73.7 %
[2019-03-13 05:55] LABS: Calcium 9.1 mg/dL (8.6-10.3); Potassium 4.6 mEq/L (3.5-5.1)
[2019-03-13] MEDS: Nitrofurantoin (BID) 100 MG CAPSULE PO SCH ×2 (08:54→17:31)
[2019-03-13] MEDS: *HR* Dabigatran 75 MG CAPSULE PO SCH ×2 (08:54→20:26)
[2019-03-13] MEDS: cefTRIAXone 1,000 MG in Water for inj. (sterile) 20 ML 10 ML IVP SCH (08:54)
[2019-03-13] MEDS: amLODIPine 5 MG TABLET PO SCH (08:54)
[2019-03-13] MEDS: ALPRAZolam 1 MG TABLET PO PRN ×2 (08:57→20:26)
[2019-03-13] MEDS: Budesonide/Formoterol 160/4.5 1 PUFF INH IH SCH ×2 (10:25→20:31)
[2019-03-13 10:50] LABS: Protein/Creatinine Ratio,Urine 0.57 mg/mg (0.00-0.20); Sodium, Urine 99.4 mEq/L
--- NOTE | 2019-03-13 13:45 | Internal Med Progress Note ---
<Adebayo Grajeda - Last Filed: 03/13/19 15:22> Hospitalist Progress Note - Encounter Date of Encounter: 03/13/19 - Exam Vitals: Temp Pulse Resp BP Pulse Ox 97.2 F L 87 19 115/75 93 03/13/19 11:32 03/13/19 11:32 03/13/19 11:32 03/13/19 11:32 03/13/19 11:32 - Time Spent with Patient Total time spent is greater than 50% in coordination of care (as documented) at patient's floor/unit and/or counseling patient: Internal Medicine: Result - Labs CBC & Chem 7: 03/13/19 05:15 03/13/19 05:15 Labs: Short CBC 03/13/19 Range/Units 05:15 WBC 7.5 (4.3-11.1) K/mcL Hgb 14.3 (12.9-16.9) g/dL Hct 43.5 (37.5-50.1) % Plt Count 147 (140-400) K/mcL Neutrophils # 5.5 (1.6-8.9) K/mcL BMP 03/13/19 05:15 Sodium 138 Potassium 4.6 Chloride 104 Carbon Dioxide 25 BUN 30 H Creatinine 1.64 H Glucose 111 H Calcium 9.1 - ABG Interpretation ABG results: PT/INR, D-dimer PT 14.1 Seconds (9.4-12.1) H 03/12/19 13:53 Consult Discharge Plan - Plan Referrals: Chely Steinberg, FINANCIAL QUANTITATIVE ANALYST [Primary Care Provider] - (Your appointment has been requested. Our offices will call with an appointment time and date. If you do not hear from us, please call [phone] to schedule an appointment) - Attending Attestation I examined this patient and my medical decision-making was reviewed with the Resident Physician. I agree with the documented findings, disposition and treatment plan as described except to the extent set forth below. Patient seen and examined at bedside. Patient states he feels slightly better today but still does not feel great. He is not able to give any specific complaints and states he feels generally unwell. He reports good urine output. Denies any fevers or chills. On exam his heart is irregularly irregular with no murmurs, rubs, gallops, abdomen is soft, nontender, distended. No lower extremity edema. [place] on CKD stage III: Creatinine improved today. Continue to encourage by mouth hydration. Retroperitoneal ultrasound pending UTI: Asymptomatic today. Continue Macrobid. <Kylie Ojeda Tammy - Last Filed: 03/13/19 17:01> Hospitalist Progress Note - Encounter Date of Encounter: 03/13/19 Time of Encounter: 10:00 - Subjective Interval History: Mr. Lynn is a 78 year old male who presented today after having nausea and vomiting and just feeling weak. He states that he has been having urinary incontinence, burning with urination, lower abdominal pain with urination. He was discharged on February 28 for acute CVA. Recent history of greenlight prostatectomy 3 weeks ago. Patient has a past medical history of hypertension, hyperlipidemia, COPD on home oxygen, A, A. fib on per DEXA, CAD, CHF, stage III CKD. Labs at the ED showed BUN 31, creatinine 1.85, GFR 36 and hyponatremia. On further review of labs. Patient's kidney function is decreased compared to his norm, hyponatremia is close to patient's baseline. CT head showed no acute abnormalities, chest x-ray only showed hemidiaphragm on right side slightly elevated. Urinalysis showed increased protein, large leukocyte esterase, white blood cells.Patient was admitted for [place] and UTI. Was given 1 dose of Rocephin in the ED and started on IV fluids. She was seen and examined at bedside today. He states he is feeling a little bit better today. He denies any chest pain, shortness of breath, nausea, vomiting, diarrhea, abdominal pain. He does state that he is still feeling weak although he this from his stroke. - Exam Vitals: Temp Pulse Resp BP Pulse Ox 97.2 F L 87 19 115/75 93 03/13/19 11:32 03/13/19 11:32 03/13/19 11:32 03/13/19 11:32 03/13/19 11:32 Exam: General: AAO 3, no acute distress, answers questions appropriately Head: normocephalic, atraumatic Eyes: VIVIAN, no icterus Mouth: Mucous membranes dry Neck: Trachea midline Cardio: Regular rate and irregular rhythm, no mumurs, rubs, or gallops Respiratory: CTAB, no wheezing, rhonchi, rales Abd: normal bowel sounds, no gaurding or rigidity Extremties: no pedal edema, pulses equal bilaterally, warm Skin: warm, dry, intact - Assessment and Plan (1) UTI (urinary tract infection) Current Visit: Yes Status: Acute Assessment and Plan: Patient reports symptoms of urinary incontinence, pain with urination, lower abdominal pain with urination since prostatectomy 3 weeks ago UA showed protein, large [place] esterase, white blood cells Patient is afebrile with no leukocytosis Patient had positive culture for enterococcus for Cialis that was pansensitive about a month ago Macrobid- day 2 of treatment Urine culture pending (2) Acute kidney injury superimposed on chronic kidney disease Current Visit: Yes Status: Acute Assessment and Plan: Secondary dehydration likely due to Lasix use Creatinine elevated above his baseline at 1.85 Patient was given 1 bag of IV fluids on admission Urine osmolality 684 Urine Creatinine 131 Protein/Creatinie Ratio 0.57 Urine Sodium 99.4 Urine Total Protein 74 US/US retroperitoneal comp IMPRESSION: 1. No evidence of hydronephrosis. 2. Thick-walled urinary bladder with prominent trabecula a and a suggestion of a bladder diverticula. This is suboptimally evaluated via ultrasound. OUtpatient urology recommended for urinary bladder thickening (3) Dehydration Current Visit: Yes Status: Acute Assessment and Plan: This was likely due to Lasix use adn UTI Also secondary to poor oral intake PAtient was given one bag of fluids on admission Labs have normalized Will continue to monitor (4) Weakness Current Visit: Yes Status: Acute Assessment and Plan: Chronic since his previous admission for CVA Continue PT/OT Will be discharged back to [facility] for further rehab (5) Chronic systolic heart failure Current Visit: Yes Status: Chronic Assessment and Plan: Patient's last echo showed LVEF 45-50% Not currently in exacerbation Careful consideration for any fluids taht would be needed to prevent exacerbation (6) COPD (chronic obstructive pulmonary disease) Current Visit: No Status: Chronic Assessment and Plan: Currently controlled on home medications continue symbicort (7) Chronic a-fib Current Visit: No Status: Chronic Assessment and Plan: Controlled and on anticoagulation Continue Pradaxa and carvedilol (8) Coronary artery disease Current Visit: No Status: Chronic Assessment and Plan: Known history of coronary artery disease Continue statin, beta bernard (9) Hyperlipidemia Current Visit: No Status: Chronic Assessment and Plan: Continue home statin (10) Hypertension Current Visit: No Status: Chronic Assessment and Plan: We will hold losartan currently due to nephrotoxicity Continue to monitor blood pressures (11) History of CVA (cerebrovascular accident) Current Visit: Yes Status: Chronic Assessment and Plan: Had acute CVA and was discharged on February 28 on Pradaxa as well as carvedilol increased to 12.5 twice a day, losartan increased to 100 mg daily. We will continue Pradaxa and carvedilol but will hold losartan to to nephrotoxic ity We will do PTOT for his weakness Continue to monitor (12) DVT prophylaxis Current Visit: Yes Status: Acute Assessment and Plan: Pradaxa DVT Prophylaxis: Pradaxa - Time Spent with Patient Total time spent is greater than 50% in coordination of care (as documented) at patient's floor/unit and/or counseling patient: Internal Medicine: Result - Labs CBC & Chem 7: 03/13/19 05:15 03/13/19 05:15 Labs: Short CBC 03/12/19 03/13/19 Range/Units 13:53 05:15 WBC 7.7 7.5 (4.3-11.1) K/mcL Hgb 15.6 14.3 (12.9-16.9) g/dL Hct 46.5 43.5 (37.5-50.1) % Plt Count 156 147 (140-400) K/mcL Neutrophils # 5.7 5.5 (1.6-8.9) K/mcL BMP 03/12/19 03/13/19 13:53 05:15 Sodium 133 L 138 Potassium 4.6 4.6 Chloride 102 104 Carbon Dioxide 25 25 BUN 31 H 30 H Creatinine 1.85 H 1.64 H Glucose 104 111 H Calcium 9.2 9.1 Cardiac Enzymes 03/12/19 Range/Units 13:53 Troponin I < 0.03 (< 0.04) ng/mL Liver Function 03/12/19 Range/Units 13:53 Total Bilirubin 1.0 (0.3-1.0) mg/dL AST 16 (13-39) Units/L ALT 23 (7-52) Units/L Alkaline Phosphatase 86 (34-104) Units/L Albumin 3.7 (3.5-5.7) g/dL Urine 03/12/19 Range/Units 14:24 Urine Color Yellow (Yellow) Urine Clarity Cloudy A (Clear) Urine pH 5.5 (5.0-8.0) pH Units Ur Specific [place] 1.021 (1.010-1.025) Urine Protein 100 H (Neg-Trace) mg/dL Urine Glucose (UA) Normal (Normal) mg/dL - ABG Interpretation ABG results: PT/INR, D-dimer PT 14.1 Seconds (9.4-12.1) H 03/12/19 13:53 - Impressions Impressions Chest X-Ray 03/12/19 13:43 IMPRESSION: Mild elevation of the right hemidiaphragm. Otherwise, stable chest D/ / Adebayo Lafleur MD / Adebayo Lafleur MD Interpreting Provider: Adebayo Lafleur MD Head CT 03/12/19 13:45 IMPRESSION: No acute intracranial abnormality. Senescent changes. D/ / Ron Mendoza / Ron Mendoza Interpreting Provider: Ron Mendoza <Kylie Ojeda - Last Filed: 03/13/19 17:01> (1) UTI (urinary tract infection) Qualifiers: Urinary tract infection type: site unspecified Hematuria presence: without hematuria Qualified Code(s): N39.0 - Urinary tract infection, site not specified (6) COPD (chronic obstructive pulmonary disease) Qualifiers: COPD type: unspecified COPD Qualified Code(s): J44.9 - Chronic obstructive pulmonary disease, unspecified (8) Coronary artery disease Qualifiers: Coronary Disease-Associated Artery/Lesion type: unspecified vessel or lesion type [place] vs. transplanted heart: [place] heart Associated angina: without angina Qualified Code(s): I25.10 - Atherosclerotic heart disease of [place] coronary artery without angina pectoris (9) Hyperlipidemia Qualifiers: Hyperlipidemia type: unspecified Qualified Code(s): E78.5 - Hyperlipidemia, unspecified (10) Hypertension Qualifiers: Hypertension type: essential hypertension Qualified Code(s): I10 - Essential (primary) hypertension
[2019-03-13] MEDS: Finasteride 5 MG TABLET PO SCH (17:31)
[2019-03-13] MEDS: Isosorbide MONOnitrate (24 HR) 60 MG TAB.ER.24H PO SCH (17:32)
[2019-03-13] MEDS: Melatonin 3 MG TABLET PO PRN (20:26)
[2019-03-14 05:39] LABS: Calcium 8.9 mg/dL (8.6-10.3); Potassium 4.3 mEq/L (3.5-5.1)
--- NOTE | 2019-03-14 07:32 | Discharge Summary ---
<Adebayo Grajeda - Last Filed: 03/14/19 10:07> Orders not resulted at time of discharge: Pending orders 03/12/19 17:01 Culture,Urine [RM] Routine Date of Encounter: 03/14/19 Hospital course: Mr. Lynn is a 78 year old male - Time Spent with Patient Total time spent providing and/or coordinating discharge services: - Discharge Medications Prescriptions: New Nitrofurantoin (BID) [Macrobid] 100 mg PO BID #10 capsule ALPRAZolam [Xanax 1 MG Tablet] 1 mg PO BID PRN 14 Days #14 tablet PRN Reason: anxiety Continued amLODIPine [Norvasc] 5 mg PO DAILY Duloxetine HCl [Cymbalta] 60 mg PO QAM Finasteride [Proscar] 5 mg PO QPM Montelukast [Singulair] 10 mg PO QPM Nitroglycerin 0.4 mg PO Q5M PRN MDD [id number] CALL 911 PRN Reason: Chest Pain Omeprazole [PriLOSEC] 20 mg PO QPM Zolpidem [Ambien] 10 mg PO HS Atorvastatin Calcium [Lipitor] 80 mg PO DAILY Budesonide/Formoterol 160/4.5 [Symbicort 160/4.5] 2 puff IH BID Isosorbide MONOnitrate [Isosorbide Mononitrate ER] 240 mg PO QPM Buspirone HCl [Buspar] 7.5 mg PO QPM Dabigatran [Pradaxa] 75 mg PO BID Cholecalciferol (D-3) [Vitamin D] 1,000 unit PO DAILY Multivit-Min/Folic/Vit K/Lycop [Men's 50 Plus Multivitamin Tab] 1 tab PO DAILY Acetaminophen [Tylenol] 650 mg PO Q6HR PRN tablet PRN Reason: Mild Pain/Fever Carvedilol [Coreg] 12.5 mg PO BIDWM tablet Clopidogrel [Plavix] 75 mg PO DAILY tablet Docusate [Colace] 100 mg PO BID PRN capsule PRN Reason: Constipation Losartan [Cozaar] 100 mg PO DAILY #30 tablet ALPRAZolam [Xanax 1 MG Tablet] 1 mg PO BID PRN PRN Reason: Anxiety Discontinued Furosemide [Lasix] 20 mg PO QAM Home Medications: Atorvastatin Calcium [Lipitor] 80 mg PO DAILY 12/27/18 [History] Budesonide/Formoterol 160/4.5 [Symbicort 160/4.5] 2 puff IH BID 12/27/18 [History] Duloxetine HCl [Cymbalta] 60 mg PO QAM 12/27/18 [History] Finasteride [Proscar] 5 mg PO QPM 12/27/18 [History] Isosorbide MONOnitrate [Isosorbide Mononitrate ER] 240 mg PO QPM 12/27/18 [History] Montelukast [Singulair] 10 mg PO QPM 12/27/18 [History] Nitroglycerin 0.4 mg PO Q5M PRN MDD [id number] CALL 911 12/27/18 [History] Omeprazole [PriLOSEC] 20 mg PO QPM 12/27/18 [History] Zolpidem [Ambien] 10 mg PO HS 12/27/18 [History] amLODIPine [Norvasc] 5 mg PO DAILY 12/27/18 [History] Buspirone HCl [Buspar] 7.5 mg PO QPM 02/27/19 [History] Cholecalciferol (D-3) [Vitamin D] 1,000 unit PO DAILY 02/27/19 [History] Dabigatran [Pradaxa] 75 mg PO BID 02/27/19 [History] Multivit-Min/Folic/Vit K/Lycop [Men's 50 Plus Multivitamin Tab] 1 tab PO DAILY 02/27/19 [History] Acetaminophen [Tylenol] 650 mg PO Q6HR PRN tablet 02/28/19 [Rx] Carvedilol [Coreg] 12.5 mg PO BIDWM tablet 02/28/19 [Rx] Clopidogrel [Plavix] 75 mg PO DAILY tablet 02/28/19 [Rx] Docusate [Colace] 100 mg PO BID PRN capsule 02/28/19 [Rx] Losartan [Cozaar] 100 mg PO DAILY #30 tablet 02/28/19 [Rx] ALPRAZolam [Xanax 1 MG Tablet] 1 mg PO BID PRN 03/12/19 [History] ALPRAZolam [Xanax 1 MG Tablet] 1 mg PO BID PRN 14 Days #14 tablet 03/14/19 [Rx] Nitrofurantoin (BID) [Macrobid] 100 mg PO BID #10 capsule 03/14/19 [Rx] Allergies/Adverse Reactions: Allergy/AdvReac Type Severity Reaction Status Date / Time epinephrine AdvReac See Verified 02/08/19 09:49 Comments Tizanidine AdvReac Dizziness Verified 02/08/19 09:49 Date of admission: 03/12/19 15:42 Primary care physician: Chely Steinberg CNP Consults: 03/12/19 17:53 Consult to Physical Therapy [CONS] Routine Comment: Evaluate, develop and implement POC Reason for Consult: weakness post recent CVA Does patient have active BEDREST order?: No Is patient medically & hemodynamically stable?: Yes OT [Consult to Occupational Therapy] [CONS] Routine Comment: Evaluate, develop and implement POC Reason for Consult: weakness post recent CVA Does patient have active BEDREST order?: No Is patient medically & hemodynamically stable?: Yes 03/12/19 18:39 Consult to [facility] [CONS] Routine Reason for SW Consult: D/C to ECF - Constitutional Vitals: Temp Pulse Resp BP Pulse Ox 97.6 F 84 16 132/81 96 03/14/19 07:18 03/14/19 07:18 03/14/19 08:17 03/14/19 08:17 03/14/19 08:17 - Patient Status Disposition: Transfer SNF Condition: Good - Discharge Instructions Follow Up With: Chely Steinberg CNP [Primary Care Provider] - (Your appointment has been requested. Our offices will call with an appointment time and date. If you do not hear from us, please call [phone] to schedule an appointment) Additional Instructions: Continue Macrodantin for your UTI Follow-up with your PCP as scheduled Continue with physical therapy for weakness Return to the ED if you have worsening signs of infection such as fever, chills, nausea, vomiting, abdominal pain, back pain - Attending Attestation I examined this patient and my medical decision-making was reviewed with the Resident Physician. I agree with the documented findings, disposition and treatment plan as described except to the extent set forth below. Patient seen and examined at bedside. Patient states that he feels slightly better today. He is urinating well. On exam his lungs are clear to auscultation, no lower extremity edema noted [place] on chronic kidney disease stage III: Creatinine has returned to baseline. Continue to encourage by mouth intake UTI: Symptomatically improved, continue Macrobid for 5 days. Patient is stable for discharge back to [facility]. <Kylie Ojeda Tammy - Last Filed: 03/14/19 14:02> Orders not resulted at time of discharge: Pending orders 03/12/19 17:01 Culture,Urine [RM] Routine Date of Encounter: 03/14/19 Time of Encounter: 09:45 - Discharge Diagnosis (1) UTI (urinary tract infection) Priority: Primary Status: Acute Qualifiers: Urinary tract infection type: site unspecified Hematuria presence: without hematuria Qualified Code(s): N39.0 - Urinary tract infection, site not specified (2) Acute kidney injury superimposed on chronic kidney disease Priority: Primary Status: Acute (3) Dehydration Priority: Primary Status: Acute (4) Weakness Priority: Secondary Status: Chronic (5) Chronic systolic heart failure Priority: Secondary Status: Chronic (6) COPD (chronic obstructive pulmonary disease) Priority: Secondary Status: Chronic Qualifiers: COPD type: unspecified COPD Qualified Code(s): J44.9 - Chronic obstructive pulmonary disease, unspecified (7) Chronic a-fib Priority: Secondary Status: Chronic (8) Coronary artery disease Priority: Secondary Status: Chronic Qualifiers: Coronary Disease-Associated Artery/Lesion type: unspecified vessel or lesion type [place] vs. transplanted heart: [place] heart Associated angina: without angina Qualified Code(s): I25.10 - Atherosclerotic heart disease of [place] coronary artery without angina pectoris (9) Hyperlipidemia Priority: Secondary Status: Chronic Qualifiers: Hyperlipidemia type: unspecified Qualified Code(s): E78.5 - Hyperlipidemia, unspecified (10) Hypertension Priority: Secondary Status: Chronic Qualifiers: Hypertension type: essential hypertension Qualified Code(s): I10 - Essential (primary) hypertension (11) History of CVA (cerebrovascular accident) Priority: Secondary Status: Chronic (12) DVT prophylaxis Priority: Secondary Status: Acute Hospital course: Mr. Lynn is a 78 year old male presented to the ED after having nausea and vomiting and just feeling weak. He has been having urinary incontinence, burning with urination, lower abdominal pain with urination. He was discharged on February 28 after an acute CVA. Recent history of greenlight prostatectomy 36 ago. Past medical history of hypertension, hyperlipidemia, COPD on home oxygen, A. fib on predaxa, CAD, CHF, stage III kidney disease. Labs in the ED showed BUN of 31, creatinine of 1.85, GFR 36, and hyponatremia. Patient was admitted for a KIN UTI. Urinalysis showed increased protein, large leukocyte esterase, white blood cells. Patient was treated with Macrobid orally for his UTI. He had decrease in his nausea. His labs revealed that his [place] improved with labs trending back to baseline. Renal ultrasound showed no signs of hydronephrosis. Patient will be discharged on Macrobid for a total of 7 days therapy. Patient will need to continue physical therapy at [facility] for his weakness that occured after his stroke. - Time Spent with Patient Total time spent providing and/or coordinating discharge services: Date of admission: 03/12/19 15:42 Primary care physician: Chely Steinberg CNP Consults: 03/12/19 17:53 Consult to Physical Therapy [CONS] Routine Comment: Evaluate, develop and implement POC Reason for Consult: weakness post recent CVA Does patient have active BEDREST order?: No Is patient medically & hemodynamically stable?: Yes OT [Consult to Occupational Therapy] [CONS] Routine Comment: Evaluate, develop and implement POC Reason for Consult: weakness post recent CVA Does patient have active BEDREST order?: No Is patient medically & hemodynamically stable?: Yes 03/12/19 18:39 Consult to [facility] [CONS] Routine Reason for SW Consult: D/C to ECF Discharging clinician: Adebayo Grajeda Anticipated date of discharge: 03/14/19 - Constitutional Vitals: Temp Pulse Resp BP Pulse Ox 97.6 F 84 17 132/81 95 03/14/19 07:18 03/14/19 07:18 03/14/19 07:18 03/14/19 07:18 03/14/19 07:18 Exam: General: AAO 3, no acute distress, answers questions appropriately Head: normocephalic, atraumatic Eyes: [place], no icterus Mouth: Mucous membranes dry Neck: Trachea midline Cardio: Regular rate and irregular rhythm, no mumurs, rubs, or gallops Respiratory: CTAB, no wheezing, rhonchi, rales Abd: normal bowel sounds, no gaurding or rigidity Extremties: no pedal edema, pulses equal bilaterally, warm Skin: warm, dry, intact - Patient Status Functional capacity at discharge: independent ambulation (With assist) Overall status at discharge: patient is progressing back to baseline - Diet and Activity Activity: as per physical therapy Diet: advance to your usual diet
[2019-03-14] MEDS: Budesonide/Formoterol 160/4.5 1 PUFF INH IH SCH (08:17)
[2019-03-14] MEDS: ALPRAZolam 1 MG TABLET PO PRN (08:52)
[2019-03-14] MEDS: *HR* Dabigatran 75 MG CAPSULE PO SCH (08:52)
[2019-03-14] MEDS: Nitrofurantoin (BID) 100 MG CAPSULE PO SCH (08:52)
[2019-03-14] MEDS: amLODIPine 5 MG TABLET PO SCH (08:52)
--- NOTE | 2019-03-14 10:30 | Physician Discharge Referral ---
ExtendedCare Referral Info Transfer To: ECF Provider in Charge after Transfer: PCP Institutional Level of Care: Skilled - Diagnosis (1) UTI (urinary tract infection) Priority: Primary Status: Acute (2) Acute kidney injury superimposed on chronic kidney disease Priority: Primary Status: Acute (3) Dehydration Priority: Secondary Status: Acute (4) Weakness Priority: Secondary Status: Chronic (5) Chronic systolic heart failure Priority: Secondary Status: Chronic (6) COPD (chronic obstructive pulmonary disease) Priority: Secondary Status: Chronic (7) Chronic a-fib Priority: Secondary Status: Chronic (8) Coronary artery disease Priority: Secondary Status: Chronic (9) Hyperlipidemia Priority: Secondary Status: Chronic (10) Hypertension Priority: Secondary Status: Chronic (11) History of CVA (cerebrovascular accident) Priority: Secondary Status: Chronic (12) DVT prophylaxis Priority: Secondary Status: Acute Prognosis: Good Aware of Diagnosis: Patient Aware of Prognosis: Patient - Transfer Medications Prescriptions: Nitrofurantoin (BID) [Macrobid] 100 mg PO BID #10 capsule ALPRAZolam [Xanax 1 MG Tablet] 1 mg PO BID PRN 14 Days #14 tablet PRN Reason: anxiety Home Medications: Atorvastatin Calcium [Lipitor] 80 mg PO DAILY 12/27/18 [History] Budesonide/Formoterol 160/4.5 [Symbicort 160/4.5] 2 puff IH BID 12/27/18 [History] Duloxetine HCl [Cymbalta] 60 mg PO QAM 12/27/18 [History] Finasteride [Proscar] 5 mg PO QPM 12/27/18 [History] Isosorbide MONOnitrate [Isosorbide Mononitrate ER] 240 mg PO QPM 12/27/18 [History] Montelukast [Singulair] 10 mg PO QPM 12/27/18 [History] Nitroglycerin 0.4 mg PO Q5M PRN MDD [id number] CALL 911 12/27/18 [History] Omeprazole [PriLOSEC] 20 mg PO QPM 12/27/18 [History] Zolpidem [Ambien] 10 mg PO HS 12/27/18 [History] amLODIPine [Norvasc] 5 mg PO DAILY 12/27/18 [History] Buspirone HCl [Buspar] 7.5 mg PO QPM 02/27/19 [History] Cholecalciferol (D-3) [Vitamin D] 1,000 unit PO DAILY 02/27/19 [History] Dabigatran [Pradaxa] 75 mg PO BID 02/27/19 [History] Multivit-Min/Folic/Vit K/Lycop [Men's 50 Plus Multivitamin Tab] 1 tab PO DAILY 02/27/19 [History] Acetaminophen [Tylenol] 650 mg PO Q6HR PRN tablet 02/28/19 [Rx] Carvedilol [Coreg] 12.5 mg PO BIDWM tablet 02/28/19 [Rx] Clopidogrel [Plavix] 75 mg PO DAILY tablet 02/28/19 [Rx] Docusate [Colace] 100 mg PO BID PRN capsule 02/28/19 [Rx] Losartan [Cozaar] 100 mg PO DAILY #30 tablet 02/28/19 [Rx] ALPRAZolam [Xanax 1 MG Tablet] 1 mg PO BID PRN 03/12/19 [History] ALPRAZolam [Xanax 1 MG Tablet] 1 mg PO BID PRN 14 Days #14 tablet 03/14/19 [Rx] Nitrofurantoin (BID) [Macrobid] 100 mg PO BID #10 capsule 03/14/19 [Rx] Allergies/Adverse Reactions: Allergy/AdvReac Type Severity Reaction Status Date / Time epinephrine AdvReac See Verified 02/08/19 09:49 Comments Tizanidine AdvReac Dizziness Verified 02/08/19 09:49 - Respiratory Orders Smoking Cessation: Smoking cessation has been advised. For more information, call the [place] Tobacco Quit Line at 1-587-AXUI-NOW. - Advance Directives Code Status: Full Code - Mobility Orders Ambulate - Rehabiliation Orders Rehab Potential: Good Rehab Orders: Evaluation for Physical Therapy, Evaluation for Occupational Therapy - Diet Orders Regular CERTIFICATION: I certify that the transfer of the above named patient to an Extended Care Facility is necessary for the continuing treatment of the diagnosis listed. The above information is true and accurate reflection of patient's current condition. Confidential - Redisclosure prohibited without a patient's written consent.
[2019-03-14 11:28] VITALS: BP 131/85
--- NOTE | 2019-03-14 15:12 | Electrocardiograph Report ---
[address] [address] Test Date: 2019-03-12 Pat Name: [facility] Department: EXAM3 Room: 3B Gender: M Juice [employer]er: : [id number] Requested By: Elías Black Order Number: [id number] Reading MD: Jonathan Al Measurements Intervals [place] Rate: 92 P: OR: QRS: -18 QRSD: 100 T: 144 QT: 393 QTc: 487 Interpretive Statements Atrial fibrillation with PVCs LVH with secondary repolarization abnormality Borderline prolonged QT interval Electronically Signed On 03-14-2019 15:11:07 EDT by Jonathan Al
== END 2019-03-14 14:18 ==
LOC: 3BNU 13:35 → EMEROOARM 13:35 → SUATTDRO 15:42 → 3BNU 16:55
PROVIDERS: ADMIT Internal Medicine; ATTEND Internal Medicine

== ENCOUNTER 2019-08-07 08:25 | Observation (INO) ==
--- NOTE | 2019-08-07 09:10 | Emergency Department Note ---
Disposition Clinical Impression: Weakness, Bradycardia, History of CVA (cerebrovascular accident), Anticoagulated by anticoagulation treatment, Dizziness, Cardiac arrhythmia Disposition: Admitted As Inpatient Condition: Fair Referrals: Chely Steinberg CNP [Primary Care Provider] - Forms: ED Satisfaction Letter Time of Disposition: 11:13 Weakness HPI - General Chief complaint: ED Weakness Stated complaint: weakness Time Seen by Provider: 08/07/19 08:30 Source: patient, EMS Mode of arrival: EMS Limitations: no limitations Nursing Notes Reviewed: Yes Vital Signs Reviewed: Yes - History of Present Illness HPI Narrative: 78-year-old male history of atrial fibrillation on Pradaxa, hypertension, recent left side CVA presents emergency department via EMS for weakness and dizziness. States over the past few days he is been feeling weak. This morning he felt dizzy after getting up. He felt unsteady on his feet but did not pass out. He was concerned so he hit his [employer] alert. Concerned as he recently had a stroke back in February and right-sided leg weakness that has resolved. Says he went to sleep 2200 last night still not feeling well but worse when he woke up this morning at 6 AM. Denies any weakness slurred speech or visual changes. Denies any recent illness cough congestion chest pain or shortness of breath. States he has a history of frequent urinary tract infection and believes he may have one currently. He states he fell approximately 2 weeks ago but was not evaluated at that time. 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 He currently takes 3.125 mg twice a day. He is expected to see foundry patternmaker August 19 for possible pacemaker. He denies any palpitations or skip beats. No other changes to his medications. EMS noted that his heart rate fluctuated anywhere from 30 to 120. Pain Scale: 4 - Related Data Home Medications Medication Instructions Recorded Confirmed Atorvastatin Calcium [Lipitor] 80 mg PO DAILY 12/27/18 03/12/19 Budesonide/Formoterol 160/4.5 2 puff IH BID 12/27/18 03/12/19 [Symbicort 160/4.5] Duloxetine HCl [Cymbalta] 60 mg PO QAM 12/27/18 03/12/19 Finasteride [Proscar] 5 mg PO QPM 12/27/18 03/12/19 Isosorbide MONOnitrate [Isosorbide 240 mg PO QPM 12/27/18 03/12/19 Mononitrate ER] Montelukast [Singulair] 10 mg PO QPM 12/27/18 03/12/19 Nitroglycerin 0.4 mg PO Q5M PRN MDD [id number] CALL 12/27/18 03/12/19 911 Omeprazole [PriLOSEC] 20 mg PO QPM 12/27/18 03/12/19 Zolpidem [Ambien] 10 mg PO HS 12/27/18 03/12/19 amLODIPine [Norvasc] 5 mg PO DAILY 12/27/18 03/12/19 Buspirone HCl [Buspar] 7.5 mg PO QPM 02/27/19 03/12/19 Cholecalciferol (D-3) [Vitamin D] 1,000 unit PO DAILY 02/27/19 03/12/19 Dabigatran [Pradaxa] 75 mg PO BID 02/27/19 03/12/19 Multivit-Min/Folic/Vit K/Lycop 1 tab PO DAILY 02/27/19 03/12/19 [Men's 50 Plus Multivitamin Tab] ALPRAZolam [Xanax 1 MG Tablet] 1 mg PO BID PRN 03/12/19 03/12/19 Previous Rx's Medication Instructions Recorded Acetaminophen [Tylenol] 650 mg PO Q6HR PRN tablet 02/28/19 Carvedilol [Coreg] 12.5 mg PO BIDWM tablet 02/28/19 Clopidogrel [Plavix] 75 mg PO DAILY tablet 02/28/19 Docusate [Colace] 100 mg PO BID PRN capsule 02/28/19 Losartan [Cozaar] 100 mg PO DAILY #30 tablet 02/28/19 Nitrofurantoin (BID) [Macrobid] 100 mg PO BID #10 capsule 03/14/19 Allergies Allergy/AdvReac Type Severity Reaction Status Date / Time epinephrine AdvReac See Verified 02/08/19 09:49 Comments Tizanidine AdvReac Dizziness Verified 02/08/19 09:49 All systems ED: reviewed and negative except as stated. Review of Systems: As Per HPI Constitutional: Reports: weakness. Denies: fever, chills Eyes: Denies: vision change ENT ED: Denies: congestion Cardiovascular: Denies: chest pain, palpitations, dyspnea on exertion, orthopnea Respiratory: Denies: cough, dyspnea Gastrointestinal: Denies: abdominal pain, nausea, vomiting Genitourinary: Denies: urgency, dysuria, hematuria Musculoskeletal: Denies: back pain Neurological: Reports: weakness, abnormal gait. Denies: headache, numbness, paresthesias, confusion, vertigo Past Medical History - Past Medical History Attestation: Yes The following information was validated with the patient. Source: patient Medical history: Reports: arthritis, atrial fibrillation, COPD, coronary artery disease, CVA, GERD, hyperlipidemia, hypertension, renal disease Surgical history: Reports: angioplasty/stent Psychiatric history: Reports: anxiety - Social History Smoking Status: Former smoker Smokeless Tobacco Status: No Alcohol use: Reports: none Drug use: Reports: none Physical Exam - General Limitations: no limitations General appearance: alert, in no apparent distress - Head Head exam: atraumatic, normocephalic, normal inspection - Eye Eye exam: Present: normal appearance, PERRL, EOMI - ENT ENT exam: normal exam, normal oropharynx, mucous membranes moist - Neck Neck exam: Present: normal inspection, full ROM, trachea midline - Chest Chest inspection: Present: normal inspection, symmetric chest wall rise, other (ecchymosis to right posterior chest wall). Absent: tenderness - Expanded Chest Exam Trauma: Present: ecchymosis. Absent: crepitus, laceration - Respiratory Respiratory exam: Present: normal lung sounds bilaterally. Absent: respiratory distress, wheezes - Cardiovascular Cardiovascular exam: Present: bradycardia, irregular rhythm, normal heart sounds - Abdominal Exam Abdominal exam: Present: soft, Non-Tender, normal bowel sounds. Absent: tenderness, distention, guarding, rebound, rigidity - Extremities Exam Extremities exam: Present: normal inspection, full ROM. Absent: tenderness, pedal edema - Back Exam Back exam: Present: normal inspection, full ROM. Absent: tenderness - Neurological Exam Neurological exam: Present: alert, oriented X3, CN II-XII intact - Expanded Neurological Exam Patient oriented to: Present: person, place, time Speech: Present: fluid speech Cranial nerves: EOM function (II, III, IV, ): Normal, facial sensation (V): Normal, facial palsy (VII): Normal, gag reflex (IX): Normal, spinal accessory function (XI): Normal, tongue deviation (XII): Normal Cerebellar function: finger to nose: Normal, heel to quiroga: Normal Motor strength - LUE: 5/5 Motor strength - RUE: 5/5 Motor strength - LLE: 5/5 Motor strength - RLE: 5/5 Upper motor neuron exam: ana paula neglect: Absent bilaterally, pronator drift: Absent bilaterally Sensory exam upper extremity: light touch: Normal Sensory exam lower extremity: light touch: Normal Coma Scale Eye Opening: Spontaneous Coma Scale Motor Response: Obeys Commands Coma Scale Verbal Response: Oriented Coma Scale Total: 15 - Psychiatric Psychiatric exam: Present: normal affect, normal mood - Skin Skin exam: Present: warm, dry, intact, other (Multiple old bruising of different various stages). Absent: rash, cyanosis, diaphoresis Course Course Narrative: presents with reported generalized weakness and dizziness. States he feels unsteady on his feet. No stroke like symptoms here no neurologic deficits on exam. He is noted to be fluctuating in a fib anywhere from 30 to 100. BP is stable at 122/79. I suspect this is the cause of symptoms the bradycardia secondary to afib. Will check some electrolytes as well as a CT of head. Patient will likely require admission. - Reevaluation(s) Reevaluation #1: Review of his labs quite unremarkable. His potassium is normal. His creatinine is near his baseline. Urinalysis is not consistent with infection. His CT scan unremarkable. Chest x-ray reveals some atelectasis. Patient denies any dyspnea or coffer fevers. He still feels dizzy and I attempted to ambulate the patient and he was quite unsteady on his feet. He was shuffling his feet which she states his new and he does that because of the dizziness. He had normal finger to nose and healed quiroga. Concern for possible posterior infarct or cerebellar. Patient will require admission. I suspect his symptoms are more likely due to the bradycardia in his atrial fibrillation. His heart rate continues to fluctuate but has been steady around 60 to 90. His blood pressure has remained stable. Patient is agreeable to this plan. Time: 10:39 - Consultations Consultation #1: Spoke with on-call hospitalist Dr. Oneil, tejinder to admit for weakness, dizziness, bradycardia. No further orders at this time Time: 11:10 Vital Signs Temperature 97.7 F 08/07/19 08:46 Pulse Rate 99 08/07/19 08:46 Respiratory Rate 20 08/07/19 08:46 Blood Pressure 122/79 08/07/19 08:46 O2 Sat by Pulse Oximetry 96 08/07/19 08:46 Temperature 98.5 F 08/07/19 09:57 Pulse Rate 84 08/07/19 09:57 Respiratory Rate 22 08/07/19 09:57 Blood Pressure 105/81 08/07/19 09:57 O2 Sat by Pulse Oximetry 96 08/07/19 09:57 Oxygen Delivery Oxygen Delivery Room Air Weakness - MDM Narrative Medical decision making narrative: Patient was discussed with my attending physician who agrees with ED management and final disposition. They independently evaluated the patient. Please refer to their attestation to this encounter for additional information. This note was generated by [employer] voice recognition software and as a result grammatical or spelling errors may occur using this program. - Medical Records Medical records reviewed: Yes I reviewed the patient's medical records. - Lab Data Lab results reviewed: Yes I reviewed the patient's lab results. Result diagrams: 08/07/19 08:55 08/07/19 08:55 Lab Results 08/07/19 08/07/19 08/07/19 Range/Units 08:55 08:55 09:40 WBC 8.9 (4.3-11.1) K/mcL RBC 5.05 (4.19-5.50) M/mcL Hgb 14.9 (12.9-16.9) g/dL Hct 44.2 (37.5-50.1) % MCV 87.5 (83.0-100.0) fL MCH 29.5 (28.0-33.3) pg MCHC 33.7 (31.6-35.5) g/dL RDW 13.9 (11.5-14.5) % Plt Count 189 (140-400) K/mcL MPV 10.0 (9.4-12.4) fL Immature Gran % 0.6 (0-4) % Seg Neutrophils % 71.7 % Lymphocytes % 13.9 % Monocytes % 10.5 % Eosinophils % 2.6 % Basophils % 0.7 % Neutrophils # 6.4 (1.6-8.9) K/mcL Lymphocytes # 1.2 (0.6-4.6) K/mcL Monocytes # 0.9 (0.0-1.3) K/mcL Eosinophils # 0.2 (0.0-0.6) K/mcL Basophils # 0.1 (0.0-0.2) K/mcL Sodium 132 L (136-145) mEq/L Potassium 4.6 (3.5-5.1) mEq/L Chloride 100 (98-107) mEq/L Carbon Dioxide 22 L (23-29) mEq/L BUN 40 H (8-23) mg/dL Creatinine 1.92 H (0.70-1.30) mg/dL Est GFR ( Amer) 41 L (> 60) Est GFR (Non-Af Amer) 34 L (> 60) BUN/Creatinine Ratio 21 (6-26) Glucose 115 H (70-105) mg/dL Calculated Osmolality 285 (280-300) Calcium 9.8 (8.6-10.3) mg/dL Magnesium 1.8 (1.6-2.6) mg/dL Total Bilirubin 0.9 (0.3-1.0) mg/dL AST 14 (13-39) Units/L ALT 18 (7-52) Units/L Alkaline Phosphatase 51 (34-104) Units/L Troponin I 0.03 (< 0.04) ng/mL Serum Total Protein 6.4 (6.4-8.9) g/dL Albumin 4.1 (3.5-5.7) g/dL Globulin 2.3 L (2.4-3.5) g/dL Albumin/Globulin Ratio 1.8 (1.1-2.2) TSH 1.916 (0.340-5.600) mcIU/mL Urine Color Yellow (Yellow) Urine Clarity Clear (Clear) Urine pH 5.5 (5.0-8.0) pH Units Ur Specific [place] 1.014 (1.010-1.025) Urine Protein Negative (Neg-Trace) mg/dL Urine Glucose (UA) Normal (Normal) mg/dL Urine Ketones Negative (Negative) mg/dL Urine Blood Negative (Negative) Urine Nitrite Negative (Negative) Urine Bilirubin Negative (Negative) Urine Urobilinogen Normal (Normal) mg/dL Ur Leukocyte Esterase Negative (Negative) Ur Culture Indicated? NO (NO) - Radiology Data Radiology results reviewed: Yes I reviewed the patient's radiology results. Chest X-Ray 08/07/19 09:19 IMPRESSION: Mild streaky bibasilar opacities may relate to scarring, atelectasis, aspiration pneumonitis or potentially multifocal infiltrates. Clinical correlation suggested. Stable cardiomegaly. D/ / 08/07/2019 09:23:49 Saleem Bravo MD / gualberto Interpreting Provider: Saleem Bravo MD Head CT 08/07/19 09:34 IMPRESSION: 1. No acute intracranial abnormality. 2. Diffuse cerebral atrophy with chronic small vessel ischemic disease. D/ / Luis Miguel Kearns MD / Luis Miguel Kearns MD Interpreting Provider: Luis Miguel Kearns MD - EKG Data EKG attestation: Yes I reviewed and interpreted this EKG. EKG results narrative: EKG performed 0848 atrial fibrillation 94 bpm with occasional PVC no ST elevation, minimal ST depression seen in the lateral leads. Compared to prior EKG performed 03/12/2019 with similar consistent findings. No acute ischemic changes. Attestation Statement - Attestation Attestation: I, Gregory Doe DO, examined this patient [id number] and my medical decision-making was reviewed with Saleem Wang DO , Resident Physician. I agree with the documented findings, disposition and treatment plan as described except to the extent set forth below. I personally supervised and was present for the gregorio/critical portions of the procedures completed by the resident documented below. Please see my progress notes for details.
[2019-08-07 09:13] LABS: Basophils # 0.1 K/mcL (0.0-0.2); Basophils % 0.7 %; Eosinophils # 0.2 K/mcL (0.0-0.6); Eosinophils % 2.6 %; Hematocrit 44.2 % (37.5-50.1); Hemoglobin 14.9 g/dL (12.9-16.9); Immature Granulocytes % 0.6 % (0-4); Lymphocytes # 1.2 K/mcL (0.6-4.6); Lymphocytes % 13.9 %; Mean Corpuscular HGB Conc 33.7 g/dL (31.6-35.5); Mean Corpuscular Hemoglobin 29.5 pg (28.0-33.3); Mean Corpuscular Volume 87.5 fL (83.0-100.0); Monocytes # 0.9 K/mcL (0.0-1.3); Monocytes % 10.5 %; Neutrophils # 6.4 K/mcL (1.6-8.9); Platelet Count 189 K/mcL (140-400); Red Blood Count 5.05 M/mcL (4.19-5.50); Red Cell Distribution Width 13.9 % (11.5-14.5); Segmented Neutrophils % 71.7 %; White Blood Count 8.9 K/mcL (4.3-11.1)
[2019-08-07 09:39] LABS: Albumin 4.1 g/dL (3.5-5.7); Albumin/Globulin Ratio 1.8 (1.1-2.2); Bilirubin,Total 0.9 mg/dL (0.3-1.0); Calcium 9.8 mg/dL (8.6-10.3); Globulin 2.3 g/dL (2.4-3.5); Magnesium 1.8 mg/dL (1.6-2.6); Potassium 4.6 mEq/L (3.5-5.1); Total Protein 6.4 g/dL (6.4-8.9); Troponin I 0.03 ng/mL (< 0.04)
[2019-08-07 09:45] LABS: Thyroid Stimulating Hormone 1.916 mcIU/mL (0.340-5.600)
[2019-08-07 10:02] LABS: Bilirubin,Urine Negative (Negative); Blood,Urine Negative (Negative); Clarity,Urine Clear (Clear); Color,Urine Yellow (Yellow); Glucose,Urine (UA) Normal (Normal); Ketones,Urine Negative (Negative); Leukocyte Esterase,Urine Negative (Negative); Nitrite,Urine Negative (Negative); PH,Urine 5.5 pH Units (5.0-8.0); Protein,Urine Negative (Neg-Trace); Specific Gravity,Urine 1.014 (1.010-1.025); Urobilinogen,Urine Normal (Normal)
--- NOTE | 2019-08-07 10:43 | Emergency Department Note ---
Disposition Clinical Impression: Dizziness, Cardiac arrhythmia Disposition: Admitted As Inpatient Condition: Fair Referrals: Chely Steinberg CNP [Primary Care Provider] - Forms: ED Satisfaction Letter Time of Disposition: 11:14 General Adult HPI - General Chief complaint: ED Weakness Stated complaint: weakness Time Seen by Provider: 08/07/19 08:30 Source: patient, EMS Mode of arrival: EMS Limitations: no limitations - History of Present Illness Pain Scale: 4 - Related Data Home Medications Medication Instructions Recorded Confirmed Atorvastatin Calcium [Lipitor] 80 mg PO DAILY 12/27/18 03/12/19 Budesonide/Formoterol 160/4.5 2 puff IH BID 12/27/18 03/12/19 [Symbicort 160/4.5] Duloxetine HCl [Cymbalta] 60 mg PO QAM 12/27/18 03/12/19 Finasteride [Proscar] 5 mg PO QPM 12/27/18 03/12/19 Isosorbide MONOnitrate [Isosorbide 240 mg PO QPM 12/27/18 03/12/19 Mononitrate ER] Montelukast [Singulair] 10 mg PO QPM 12/27/18 03/12/19 Nitroglycerin 0.4 mg PO Q5M PRN MDD [id number] CALL 12/27/18 03/12/19 911 Omeprazole [PriLOSEC] 20 mg PO QPM 12/27/18 03/12/19 Zolpidem [Ambien] 10 mg PO HS 12/27/18 03/12/19 amLODIPine [Norvasc] 5 mg PO DAILY 12/27/18 03/12/19 Buspirone HCl [Buspar] 7.5 mg PO QPM 02/27/19 03/12/19 Cholecalciferol (D-3) [Vitamin D] 1,000 unit PO DAILY 02/27/19 03/12/19 Dabigatran [Pradaxa] 75 mg PO BID 02/27/19 03/12/19 Multivit-Min/Folic/Vit K/Lycop 1 tab PO DAILY 02/27/19 03/12/19 [Men's 50 Plus Multivitamin Tab] ALPRAZolam [Xanax 1 MG Tablet] 1 mg PO BID PRN 03/12/19 03/12/19 Previous Rx's Medication Instructions Recorded Acetaminophen [Tylenol] 650 mg PO Q6HR PRN tablet 02/28/19 Carvedilol [Coreg] 12.5 mg PO BIDWM tablet 02/28/19 Clopidogrel [Plavix] 75 mg PO DAILY tablet 02/28/19 Docusate [Colace] 100 mg PO BID PRN capsule 02/28/19 Losartan [Cozaar] 100 mg PO DAILY #30 tablet 02/28/19 Nitrofurantoin (BID) [Macrobid] 100 mg PO BID #10 capsule 03/14/19 Allergies Allergy/AdvReac Type Severity Reaction Status Date / Time epinephrine AdvReac See Verified 02/08/19 09:49 Comments Tizanidine AdvReac Dizziness Verified 02/08/19 09:49 Constitutional: Reports: weakness. Denies: fever, chills Eyes: Denies: vision change ENT ED: Denies: congestion Cardiovascular: Denies: chest pain, palpitations, dyspnea on exertion, orthopnea Respiratory: Denies: cough, dyspnea Gastrointestinal: Denies: abdominal pain, nausea, vomiting Genitourinary: Denies: urgency, dysuria, hematuria Musculoskeletal: Denies: back pain Neurological: Reports: weakness, abnormal gait. Denies: headache, numbness, paresthesias, confusion, vertigo Past Medical History - Past Medical History Medical history: Reports: arthritis, atrial fibrillation, COPD, coronary artery disease, CVA, GERD, hyperlipidemia, hypertension, renal disease Surgical history: Reports: angioplasty/stent Psychiatric history: Reports: anxiety - Social History Smoking Status: Former smoker Smokeless Tobacco Status: No Alcohol use: Reports: none Drug use: Reports: none Physical Exam - General Limitations: no limitations General appearance: alert, in no apparent distress Course Vital Signs Temperature 97.7 F 08/07/19 08:46 Pulse Rate 99 08/07/19 08:46 Respiratory Rate 20 08/07/19 08:46 Blood Pressure 122/79 08/07/19 08:46 O2 Sat by Pulse Oximetry 96 08/07/19 08:46 Temperature 98.5 F 08/07/19 09:57 Pulse Rate 84 08/07/19 09:57 Respiratory Rate 22 08/07/19 09:57 Blood Pressure 105/81 08/07/19 09:57 O2 Sat by Pulse Oximetry 96 08/07/19 09:57 Oxygen Delivery Oxygen Delivery Room Air Medical Decision Making - Lab Data Result diagrams: 08/07/19 08:55 08/07/19 08:55 Lab Results 08/07/19 08/07/19 08/07/19 Range/Units 08:55 08:55 09:40 WBC 8.9 (4.3-11.1) K/mcL RBC 5.05 (4.19-5.50) M/mcL Hgb 14.9 (12.9-16.9) g/dL Hct 44.2 (37.5-50.1) % MCV 87.5 (83.0-100.0) fL MCH 29.5 (28.0-33.3) pg MCHC 33.7 (31.6-35.5) g/dL RDW 13.9 (11.5-14.5) % Plt Count 189 (140-400) K/mcL MPV 10.0 (9.4-12.4) fL Immature Gran % 0.6 (0-4) % Seg Neutrophils % 71.7 % Lymphocytes % 13.9 % Monocytes % 10.5 % Eosinophils % 2.6 % Basophils % 0.7 % Neutrophils # 6.4 (1.6-8.9) K/mcL Lymphocytes # 1.2 (0.6-4.6) K/mcL Monocytes # 0.9 (0.0-1.3) K/mcL Eosinophils # 0.2 (0.0-0.6) K/mcL Basophils # 0.1 (0.0-0.2) K/mcL Sodium 132 L (136-145) mEq/L Potassium 4.6 (3.5-5.1) mEq/L Chloride 100 (98-107) mEq/L Carbon Dioxide 22 L (23-29) mEq/L BUN 40 H (8-23) mg/dL Creatinine 1.92 H (0.70-1.30) mg/dL Est GFR ( Amer) 41 L (> 60) Est GFR (Non-Af Amer) 34 L (> 60) BUN/Creatinine Ratio 21 (6-26) Glucose 115 H (70-105) mg/dL Calculated Osmolality 285 (280-300) Calcium 9.8 (8.6-10.3) mg/dL Magnesium 1.8 (1.6-2.6) mg/dL Total Bilirubin 0.9 (0.3-1.0) mg/dL AST 14 (13-39) Units/L ALT 18 (7-52) Units/L Alkaline Phosphatase 51 (34-104) Units/L Troponin I 0.03 (< 0.04) ng/mL Serum Total Protein 6.4 (6.4-8.9) g/dL Albumin 4.1 (3.5-5.7) g/dL Globulin 2.3 L (2.4-3.5) g/dL Albumin/Globulin Ratio 1.8 (1.1-2.2) TSH 1.916 (0.340-5.600) mcIU/mL Urine Color Yellow (Yellow) Urine Clarity Clear (Clear) Urine pH 5.5 (5.0-8.0) pH Units Ur Specific [place] 1.014 (1.010-1.025) Urine Protein Negative (Neg-Trace) mg/dL Urine Glucose (UA) Normal (Normal) mg/dL Urine Ketones Negative (Negative) mg/dL Urine Blood Negative (Negative) Urine Nitrite Negative (Negative) Urine Bilirubin Negative (Negative) Urine Urobilinogen Normal (Normal) mg/dL Ur Leukocyte Esterase Negative (Negative) Ur Culture Indicated? NO (NO) Attestation Statement - Attestation Attestation: I, Gregory Doe DO, examined this patient [id number] and my medical decision-making was reviewed with Saleem Wang DO , Resident Physician. I agree with the documented findings, disposition and treatment plan as described except to the extent set forth below. I personally supervised and was present for the gregorio/critical portions of the procedures completed by the resident documented below. Please see my progress notes for details. 78-year-old male presents emergency room by EMS for evaluation of generalized weakness and feeling ill at home. Patient woke up this morning want to go to the bathroom where he felt slightly unsteady and uncomfortable. He felt lightheaded at that time as well and dizzy. He denies any chest pain shortness of breath fevers or chills. Denies any headache or vision change. He has had alterations to his home blood pressure medication. This was completed by his cylinder tester Dr. Garnica. Patient denies any other symptoms or complaints at this point. He does have a previous stroke causing some minimal right-sided weakness. No new findings noted per him on at least initial presentation. Stroke evaluation is essentially 0 at this time. Patient is mentating answering questions appropriately. Head is atraumatic. Pupils are equal and reactive. Extracted muscles are intact. Oropharynx is patent. Trachea is midline. Lungs are clear heart is regular. Patient is resting comfortably in the bed no distress. He has appropriate finger to nose and heel to quiroga testing. He has normal strength against gravity when holding his extremity is up off the bed. Patient will have evaluation completed this time for potential metabolic, intracranial, cardiac related sources to the symptoms. During initial triage patient's heart rate was listed to be in the 30s. He does have a history of cardiac arrhythmia. Patient has had a similar issues in the past on his heart been and out of fluctuation. Patient will be monitored here closely until disposition is determined. EKG was reviewed and shows no acute ischemic findings. This is reviewed by myself documented as a physician's note. Patient is otherwise stable. See detailed documentation the physical exam, medical intervention, medical decision-making disposition the resident physician's note. No critical care provider the patient's treatment course at this time. 1035 CT imaging of the head is unremarkable. Chest x-ray EKG troponin 0 evaluation of been otherwise negative at this time. Patient is feeling completely normal at this point. He has had persistent fluctuations in his heart rate while here in the emergency department. Suspicion is that the patient's lightheaded and symptoms that he felt this morning was secondary to his heart. Patient will be admitted for symptomatically monitoring and cardiology consultation. Patient is otherwise stable with no other acute abnormalities. He does have chronic renal insufficiency appears to be at baseline. Urinalysis is still pending but otherwise no other acute issues that are needing evaluated prior to the patient being admitted to the hospital for definitive management. Patient is otherwise stable. 1110 Chest x-ray shows atelectasis. Patient denies any cough congestion or fever recently. No antibiotics will be started this time. Vital signs and labs otherwise unremarkable or baseline. The hospitalist Dr. Oneil reviewed the case at length and in no other recommendations or concerns. Patient will be admitted for cardiac monitoring and possible cardiology consultation. Patient is otherwise stable. No acute neurologic deficits or other abnormality noted during our evaluation here in the emergency department. Patient is otherwise stable to time of admission
[2019-08-07] MEDS ORDERED: Acetaminophen 325 MG TABLET PO PRN (11:43)
[2019-08-07] MEDS ORDERED: *HR* HYDROcodone/Acet 5/325 mg TABLET PO PRN (11:43)
[2019-08-07] MEDS ORDERED: Naloxone 0.4 MG/ML INJ IVP PRN (11:43)
[2019-08-07] MEDS ORDERED: Ondansetron 4 MG/2 ML VIAL IVP PRN (11:43)
[2019-08-07] MEDS: 0.9 % Sodium Chloride 1,000 ML IVC SCH (14:05)
--- NOTE | 2019-08-07 14:19 | Internal Med History&Physical ---
Date of Encounter: 08/07/19 Time of Encounter: 13:20 Internal Medicine - H&P: HPI Chief complaint: Ataxic gait and confusion Admitted From: Emergency Dept Plans for Post Hospital Care: Home History of present illness: Mr. Lynn is a 78 year old male with known past medical history of chronic atrial fibrillation on Paradaxa for anti coagulation, COPD, coronary artery disease s/p PCI, CVA, GERD, hyperlipidemia, hypertension and CKD-3 who had Left thalamic infarct in 03/03, currently he is about f/u with EP third grade teacher Dr. Zepeda for possible cardiac ablation for his chronic Afib problem, now he presented to ER with ataxic gait and confusion started this morning. Patient stated this morning when he woke up he felt lightheadedness/dizzy and felt unsteady / wobbly on his feet but did not pass out. He had a similar episode again this morning before he came to the ER. He denied any chest pain/shortness of breath. Patient did mention that his third grade teacher recently cut down on his Coreg to 3.125 mg b.i.d and recommend f/u with EP Card Dr. Zepeda for possible cardiac ablation. Past Med Surg Social Fam HX - Past Medical History Medical history: arthritis, atrial fibrillation, COPD, coronary artery disease, CVA, GERD, hyperlipidemia, hypertension, renal disease Additional medical history: AAA Psychiatric history: anxiety - Past Surgical History Surgical History: angioplasty/stent Additional surgical history: stent x 2. CABG x 2. broken arm - Social History Smoking Status: Former smoker Smokeless Tobacco Status: No Alcohol use: none Drug use: none - Family History Mother Living Status: Hx Family Cancer: Yes Father Living Status: Hx Family Cardiac Disorders: Yes Internal Medicine - H&P: Meds Atorvastatin Calcium [Lipitor] 80 mg PO DAILY 12/27/18 [History] Budesonide/Formoterol 160/4.5 [Symbicort 160/4.5] 2 puff IH BID 12/27/18 [History] Duloxetine HCl [Cymbalta] 60 mg PO QAM 12/27/18 [History] Finasteride [Proscar] 5 mg PO QPM 12/27/18 [History] Isosorbide MONOnitrate [Isosorbide Mononitrate ER] 240 mg PO QPM 12/27/18 [History] Montelukast [Singulair] 10 mg PO QPM 12/27/18 [History] Nitroglycerin 0.4 mg PO Q5M PRN MDD [id number] CALL 911 12/27/18 [History] Omeprazole [PriLOSEC] 20 mg PO QPM 12/27/18 [History] Zolpidem [Ambien] 10 mg PO HS 12/27/18 [History] amLODIPine [Norvasc] 5 mg PO DAILY 12/27/18 [History] Buspirone HCl [Buspar] 7.5 mg PO QPM 02/27/19 [History] Cholecalciferol (D-3) [Vitamin D] 1,000 unit PO DAILY 02/27/19 [History] Dabigatran [Pradaxa] 75 mg PO BID 02/27/19 [History] Multivit-Min/Folic/Vit K/Lycop [Men's 50 Plus Multivitamin Tab] 1 tab PO DAILY 02/27/19 [History] Acetaminophen [Tylenol] 650 mg PO Q6HR PRN tablet 02/28/19 [Rx] Carvedilol [Coreg] 12.5 mg PO BIDWM tablet 02/28/19 [Rx] Clopidogrel [Plavix] 75 mg PO DAILY tablet 02/28/19 [Rx] Docusate [Colace] 100 mg PO BID PRN capsule 02/28/19 [Rx] Losartan [Cozaar] 100 mg PO DAILY #30 tablet 02/28/19 [Rx] ALPRAZolam [Xanax 1 MG Tablet] 1 mg PO BID PRN 03/12/19 [History] Nitrofurantoin (BID) [Macrobid] 100 mg PO BID #10 capsule 03/14/19 [Rx] Allergy/AdvReac Type Severity Reaction Status Date / Time epinephrine AdvReac See Verified 02/08/19 09:49 Comments Tizanidine AdvReac Dizziness Verified 02/08/19 09:49 All Systems PM: A 10-system review of systems was performed and is negative for pertinent findings except as documented above in the HPI. Review of systems: All the systems are reviewed everything is benign except the systems and symptoms I mentioned in the history of present illness - Constitutional Vitals: Temp Pulse Resp BP Pulse Ox 97.8 F 50 15 146/70 96 08/07/19 12:58 09/23/19 12:58 08/07/19 12:58 08/07/19 12:58 08/07/19 12:58 General appearance: Present: cooperative, A&O X 3 (a), no acute distress, answers questions appropriately Exam: a - Head Head exam: Present: atraumatic, normal inspection - Neck Neck exam general surgery: Present: normal inspection, supple - Respiratory Respiratory exam: Present: decreased breath sounds. Absent: rales, respiratory distress, rhonchi, wheezes - Cardiovascular Cardiovascular exam: Present: irregular rhythm, +S1, +S2. Absent: systolic murmur, tachycardia - GI/Abdominal GI/Abdominal exam: Present: normal bowel sounds, soft. Absent: rebound, rigid, tenderness - Extremities Exam Extremities exam: Present: normal inspection. Absent: calf tenderness, pedal edema, tenderness - Back Exam Back exam: Absent: CVA tenderness (L), CVA tenderness (R) - Neurological Exam Neurological exam: Present: alert, oriented X3 - Psychiatric Psychiatric exam: Present: normal affect, normal mood - Skin Skin exam: Absent: rash Internal Med - H&P Results - Labs CBC & Chem 7: 08/07/19 08:55 08/07/19 08:55 Labs: Short CBC 08/07/19 Range/Units 08:55 WBC 8.9 (4.3-11.1) K/mcL Hgb 14.9 (12.9-16.9) g/dL Hct 44.2 (37.5-50.1) % Plt Count 189 (140-400) K/mcL Neutrophils # 6.4 (1.6-8.9) K/mcL BMP 08/07/19 08:55 Sodium 132 L Potassium 4.6 Chloride 100 Carbon Dioxide 22 L BUN 40 H Creatinine 1.92 H Glucose 115 H Calcium 9.8 Cardiac Enzymes 08/07/19 Range/Units 08:55 Troponin I 0.03 (< 0.04) ng/mL Liver Function 08/07/19 Range/Units 08:55 Total Bilirubin 0.9 (0.3-1.0) mg/dL AST 14 (13-39) Units/L ALT 18 (7-52) Units/L Alkaline Phosphatase 51 (34-104) Units/L Albumin 4.1 (3.5-5.7) g/dL Urine 08/07/19 Range/Units 09:40 Urine Color Yellow (Yellow) Urine Clarity Clear (Clear) Urine pH 5.5 (5.0-8.0) pH Units Ur Specific [place] 1.014 (1.010-1.025) Urine Protein Negative (Neg-Trace) mg/dL Urine Glucose (UA) Normal (Normal) mg/dL - Impressions ITS Impressions Chest X-Ray 08/07/19 09:19 IMPRESSION: Mild streaky bibasilar opacities may relate to scarring, atelectasis, aspiration pneumonitis or potentially multifocal infiltrates. Clinical correlation suggested. Stable cardiomegaly. D/ / 08/07/2019 09:23:49 Saleem Bravo MD / gualberto Interpreting Provider: Saleem Bravo MD Head CT 08/07/19 09:34 IMPRESSION: 1. No acute intracranial abnormality. 2. Diffuse cerebral atrophy with chronic small vessel ischemic disease. D/ / Luis Miguel Kearns MD / Luis Miguel Kearns MD Interpreting Provider: Luis Miguel Kearns MD - Assessment and Plan (1) Ataxic gait Current Visit: Yes Status: Acute Assessment and plan: Place the pt into Tele for observation he is high risk for CVA Will do neuro checks Q 4 hour reviewed EKG by myself- showed A fib reviewed CT of the head no acute intracranial abnormality noticed Cont Pradaxa Started him on ASA will check lipid profile in the morning Cont Lipitor 80mg will get MRI of the Head Reviewed his recent carotid Doppler bilaterally and echocardiogram from 03/03 (2) Chronic a-fib Current Visit: No Status: Chronic Assessment and plan: His HR fluctuating Still in Afib Cont holding BB for now cont Pradaxa consulted Card for further eval Defer to Card about rate control medications (3) History of CVA (cerebrovascular accident) Current Visit: Yes Status: Chronic Assessment and plan: Resumed home medications (4) COPD (chronic obstructive pulmonary disease) Current Visit: No Status: Chronic Qualifiers: COPD type: unspecified COPD Qualified Code(s): J44.9 - Chronic obstructive pulmonary disease, unspecified (5) Hyperlipidemia Current Visit: No Status: Chronic Assessment and plan: On Lipitor Qualifiers: Hyperlipidemia type: unspecified Qualified Code(s): E78.5 - Hyperlipidemia, unspecified (6) Hypertension Current Visit: No Status: Chronic Assessment and plan: Stable blood pressure with current home medication Qualifiers: Hypertension type: essential hypertension Qualified Code(s): I10 - Essential (primary) hypertension (7) GERD (gastroesophageal reflux disease) Current Visit: No Status: Chronic Assessment and plan: will resume home PPI Qualifiers: Esophagitis presence: esophagitis presence not specified Qualified Code(s): K21.9 - Gastro-esophageal reflux disease without esophagitis - Time Spent With Patient Total time spent is greater than 50% in coordination of care (as documented) at patient's floor/unit and/or counseling patient:
--- NOTE | 2019-08-07 15:18 | Cardiology Consult Note ---
<Gerard Singh M - Last Filed: 08/07/19 14:53> Date of Encounter: 08/07/19 Time of Encounter: 15:00 Assessment and Plan (1) Paroxysmal atrial fibrillation with RVR Current Visit: Yes Status: Acute Known history of Paroxysmal Atrial Fibrillation -Reports feeling uneasy/lightheaded/weak/unsteady on feet, with associated falls -Currently Anti-Coagulated with Pradaxa -Recently saw Rider Ticket Worker, HR was 50bpm at that time, Coreg reduced to 3.125 from 12.5 -EMS reported HR anywhere between 30-120 -Echo 02/2019: LVEF 45%, Mild global Systolic Dysfunction, Mild LVH, Moderately dilated LA, Mild Aortic Regurg., Mild Mitral Regurg. -Highest documented HR thus far is 125, no episodes of bradycardia as of yet Plan: -No interventions indicated, will continue to monitor for changes -Continue Telemetry -Continue Pradaxa and Plavix -Re-start Coreg 3.125 if HR>110 -Patient will need 48Hr Holter on D/C -Patient advised to keep his appt with EP Rider Ticket Worker set for 08/19 (2) Coronary artery disease Current Visit: No Status: Chronic Patient has a known history of CAD [facility] 2004 s/p stent x 2 CABG 2007 [facility] 2013: patent Bypasses No chest pain EKG shows no signs of ischemia continue Statin, BB, started on ASA Qualifiers: Coronary Disease-Associated Artery/Lesion type: unspecified vessel or lesion type [place] vs. transplanted heart: [place] heart Associated angina: without angina Qualified Code(s): I25.10 - Atherosclerotic heart disease of [place] coronary artery without angina pectoris Discussion w patient/family: The assessment and plan as outlined above was discussed with the patient and/or family members who expressed understanding and agreement. All questions were answered. Thank you for involving us in the care of your patient. Please call with any questions. History of Present Illness Consult date: 08/07/19 Consult reason: Bradycardia Chief complaint: fatigue History of present illness: Mr. Lynn is a 78 year old male with PMHx of CAD with [facility] 2004 x2 stents, CABG 2007 x2 vessel, [facility] 2013 w/patent bypasses, Atrial Fibrillation on Pradaxa and Plavix, CVA in February, HTN, Dyslipidemia, COPD. The patient presents to the ED with several day history of feeling dizzy/lightheaded with associated [place]a kness. Patient has fallen during this time and reports feeling unsteady on his feet. Patient additionally reports feeling like his thoughts are disorganized. The patient was seen 3 days ago by his contracting analyst who noted his HR was 50 and reduced his Coreg to 3.125mg. He was scheduled with Professor Of Public Administration Dr. Zepeda for possible pacemaker placement. The patient did have a recent Echo back in February, <6months ago, which showed mild HFrEF 45%. In the ED, BP 122/79, RR 20, HR 99, SpO2 96% on RA. Of note, the EMS reported the pts HR fluctuated from 30's - 120's. CXR shows Bibasilar opacities, possible scarring/atelectasis vs Aspiration Pneumonitis/Multifocal Infiltrates. Head CT shows no acute intracranial abnormality. CBC was normal. CMP revealed Sodium 132, SCr 1.92, GFR at baseline, Urinalysis was bland. EKG showed Atrial Fibrillation. Past Med Surg Social Fam HX - Past Medical History Medical history: arthritis, atrial fibrillation, COPD, coronary artery disease, CVA, GERD, hyperlipidemia, hypertension, renal disease Additional medical history: AAA Psychiatric history: anxiety - Past Surgical History Surgical History: angioplasty/stent Additional surgical history: stent x 2. CABG x 2. broken arm - Social History Smoking Status: Former smoker Smokeless Tobacco Status: No Alcohol use: none Drug use: none - Family History Mother Living Status: Hx Family Cancer: Yes Father Living Status: Hx Family Cardiac Disorders: Yes Medications and Allergies Atorvastatin Calcium [Lipitor] 80 mg PO DAILY 12/27/18 [History] Budesonide/Formoterol 160/4.5 [Symbicort 160/4.5] 2 puff IH BID 12/27/18 [History] Duloxetine HCl [Cymbalta] 60 mg PO QAM 12/27/18 [History] Finasteride [Proscar] 5 mg PO QPM 12/27/18 [History] Isosorbide MONOnitrate [Isosorbide Mononitrate ER] 240 mg PO QPM 12/27/18 [Hi story] Montelukast [Singulair] 10 mg PO QPM 12/27/18 [History] Nitroglycerin 0.4 mg PO Q5M PRN MDD [id number] CALL 911 12/27/18 [History] Omeprazole [PriLOSEC] 20 mg PO QPM 12/27/18 [History] Zolpidem [Ambien] 10 mg PO HS 12/27/18 [History] amLODIPine [Norvasc] 5 mg PO DAILY 12/27/18 [History] Buspirone HCl [Buspar] 7.5 mg PO QPM 02/27/19 [History] Cholecalciferol (D-3) [Vitamin D] 1,000 unit PO DAILY 02/27/19 [History] Dabigatran [Pradaxa] 75 mg PO BID 02/27/19 [History] Multivit-Min/Folic/Vit K/Lycop [Men's 50 Plus Multivitamin Tab] 1 tab PO DAILY 02/27/19 [History] Acetaminophen [Tylenol] 650 mg PO Q6HR PRN tablet 02/28/19 [Rx] Carvedilol [Coreg] 12.5 mg PO BIDWM tablet 02/28/19 [Rx] Clopidogrel [Plavix] 75 mg PO DAILY tablet 02/28/19 [Rx] Docusate [Colace] 100 mg PO BID PRN capsule 02/28/19 [Rx] Losartan [Cozaar] 100 mg PO DAILY #30 tablet 02/28/19 [Rx] ALPRAZolam [Xanax 1 MG Tablet] 1 mg PO BID PRN 03/12/19 [History] Nitrofurantoin (BID) [Macrobid] 100 mg PO BID #10 capsule 03/14/19 [Rx] Allergy/AdvReac Type Severity Reaction Status Date / Time epinephrine AdvReac See Verified 02/08/19 09:49 Comments Tizanidine AdvReac Dizziness Verified 02/08/19 09:49 All Systems Review: The remainder of the systems were reviewed and are negative Physical Examination Vital Signs, Last 4 Hours Temp Pulse Resp BP Pulse Ox 08/07/19 12:58 97.8 F 50 15 146/70 96 08/07/19 12:45 97.8 F 50 15 146/70 08/07/19 11:58 18 121/94 08/07/19 11:47 84 18 121/94 100 Other: Gen: alert and oriented x3, NAD, Vitals noted. Head: atraumatic normocephalic Eyes: Anicteric sclera, EOMI, no nystagmus ENT: MMM, oropharynx clear Neck: trachea midline, no lymphadenopathy CV: Irregular rhythm, rate 90's, no murmurs gallops rubs Resp: mild scattered wheezes noted throughout, no rales or rhonchi, nonlabored breathing Abd: Soft, nontender, nondistended, normal BS Ext: no peripheral edema, rash, clubbing, cyanosis Neuro: no focal deficits appreciated, strength/sensation intact Results 08/07/19 08:55 08/07/19 08:55 Lab Results 08/07/19 08/07/19 08:55 08:55 WBC 8.9 Hgb 14.9 Hct 44.2 Plt Count 189 Sodium 132 L Potassium 4.6 Chloride 100 Carbon Dioxide 22 L BUN 40 H Creatinine 1.92 H Glucose 115 H Calcium 9.8 Magnesium 1.8 Total Bilirubin 0.9 AST 14 ALT 18 Alkaline Phosphatase 51 Troponin I 0.03 TSH 1.916 Consult Discharge Plan - Plan Referrals: Chely [employer] OFFICE EQUIPMENT INSTALLER [Primary Care Provider] - < A - Last Filed: 08/07/19 20:40> Date of Encounter: 08/07/19 - Attending Attestation I have personally performed a face to face evaluation on this patient. I have reviewed and agree with the documented findings and care plan as documented by the resident. History and Exam by me shows: 78 y/o M with history of essential hypertensnion, CAD s/p CABG, RENE on CPAP, dyslipidemia, chronic atrial fibrillation, small vessel CVA admitted for dizziness and ataxia. He was recently at his contracting analyst office where he was noted to have heart rates in the 50s and carvedilol was subsequently decreased from 6.25 mg twice a day to 3.125 mg twice a day. At triage, patient's heart rate was noted to be in the 30s. He reports fatigue in the last couple of months. 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 If bradycardia is documented and associated with symptoms, patient will be a candidate for permanent pa cemaker -resume carvedilol 3.125mg bid if heart rate is persistently above 110/min - Continue Pradaxa and plavix - Holter monitor if no documented yoshi during hospitalization Thanks for the consult, please call with questions. Conor Talbot MD [facility] Assessment and Plan Discussion w patient/family: The assessment and plan as outlined above was discussed with the patient and/or family members who expressed understanding and agreement. All questions were answered. Thank you for involving us in the care of your patient. Please call with any questions. History of Present Illness History of present illness: Mr. Lynn is a 78 year old male All Systems Review: The remainder of the systems were reviewed and are negative Physical Examination Vital Signs, Last 4 Hours Temp Pulse Resp BP Pulse Ox 08/07/19 18:43 97.4 F L 89 16 125/73 94 08/07/19 16:41 97.3 F L 59 17 112/72 97 Results 08/07/19 08:55 08/07/19 08:55 Lab Results 08/07/19 08/07/19 08/07/19 08:55 08:55 17:03 WBC 8.9 Hgb 14.9 Hct 44.2 Plt Count 189 Sodium 132 L Potassium 4.6 Chloride 100 Carbon Dioxide 22 L BUN 40 H Creatinine 1.92 H Glucose 115 H Calcium 9.8 Magnesium 1.8 Total Bilirubin 0.9 AST 14 ALT 18 Alkaline Phosphatase 51 Troponin I 0.03 0.03 TSH 1.916
[2019-08-07] MEDS: *HR* Dabigatran 75 MG CAPSULE PO SCH (22:12)
[2019-08-08] MEDS: 0.9 % Sodium Chloride 1,000 ML IVC SCH (00:26)
[2019-08-08 05:19] LABS: Hematocrit 42.7 % (37.5-50.1); Hemoglobin 14.2 g/dL (12.9-16.9); Mean Corpuscular HGB Conc 33.3 g/dL (31.6-35.5); Mean Corpuscular Hemoglobin 29.7 pg (28.0-33.3); Mean Corpuscular Volume 89.3 fL (83.0-100.0); Mean Platelet Volume 10.2 fL (9.4-12.4); Platelet Count 161 K/mcL (140-400); Red Blood Count 4.78 M/mcL (4.19-5.50); Red Cell Distribution Width 13.9 % (11.5-14.5); White Blood Count 8.6 K/mcL (4.3-11.1)
[2019-08-08 05:40] LABS: Calcium 8.9 mg/dL (8.6-10.3); Chol/HDL Ratio 3.2 (0-4.9); Potassium 4.3 mEq/L (3.5-5.1)
[2019-08-08] MEDS: *HR* Dabigatran 75 MG CAPSULE PO SCH (08:02)
[2019-08-08] MEDS ORDERED: ALPRAZolam 1 MG TABLET PO PRN (09:13)
[2019-08-08] MEDS ORDERED: Budesonide/Formoterol 160/4.5 1 PUFF INH IH SCH (09:15)
[2019-08-08] MEDS ORDERED: amLODIPine 5 MG TABLET PO SCH (09:15)
[2019-08-08] MEDS ORDERED: Ammonium Lactate 30 APPL/225 GM BOTTLE TP SCH (09:15)
[2019-08-08] MEDS ORDERED: Aspirin 81 MG TAB.CHEW PO SCH (09:15)
--- NOTE | 2019-08-08 09:53 | Electrocardiograph Report ---
[place] [facility] Test Date: 2019-08-07 Pat Name: [facility] Department: EXAM1 Room: 3B22 Gender: Associate Spa Director: : 1940 Requested By: Saleme Wang Order Number: [id number] Reading MD: Ryan Leigh Measurements Intervals [place] Rate: 94 P: RI: QRS: -13 QRSD: 103 T: 166 QT: 372 QTc: 396 Interpretive Statements Atrial fibrillation Ventricular bigeminy Repol abnrm, severe global ischemia (LM/MVD) Electronically Signed On 08-08-2019 9:51:51 EDT by Ryan Leigh
--- NOTE | 2019-08-08 13:59 | Cardiology Progress Note ---
<Gerard Singh - Last Filed: 08/08/19 13:56> Date of Encounter: 08/08/19 Time of Encounter: 09:00 Assessment and Plan (1) Paroxysmal atrial fibrillation with RVR Status: Acute Known history of Paroxysmal Atrial Fibrillation -Reports feeling uneasy/lightheaded/weak/unsteady on feet, with associated falls -Currently Anti-Coagulated with Pradaxa -Recently saw Dcs Engineer, HR was 50bpm at that time, Coreg reduced to 3.125 from 12.5 -EMS reported HR anywhere between 30-120 -Echo 02/2019: LVEF 45%, Mild global Systolic Dysfunction, Mild LVH, Moderately dilated LA, Mild Aortic Regurg., Mild Mitral Regurg. -Highest documented HR thus far is 125, no episodes of bradycardia as of yet Plan: -Continue Telemetry while inpatient -Will continue current dose of Coreg, no bradycardia since restarting -Continue Plavix/Pradaxa -48Hr Holter on D/C -Patient advised to keep his appt with EP Dcs Engineer set for 08/19 (2) Coronary artery disease Status: Chronic Patient has a known history of CAD [facility] 2004 s/p stent x 2 CABG 2007 [facility] 2013: patent Bypasses No chest pain EKG shows no signs of ischemia continue Statin, BB Qualifiers: Coronary Disease-Associated Artery/Lesion type: unspecified vessel or lesion type [place] vs. transplanted heart: [place] heart Associated angina: without angina Qualified Code(s): I25.10 - Atherosclerotic heart disease of [place] coronary artery without angina pectoris Discussion w patient/family: The assessment and plan as outlined above was discussed with the patient and/or family members who expressed understanding and agreement. All questions were a nswered. Thank you for involving us in the care of your patient. Please call with any questions. Subjective Principal diagnosis: Tachycardia Interval history: Patient seen and examined at bedside this morning. Patient denies any new or worsening symptoms. Does complain of some stomach discomfort, which he attributes to the food. Denies CP, SOB, palpitations, diaphoresis, nausea, fever/chills. No episodes of bradycardia overnight. Rate well controlled at this time. Objective Vital Signs, Last 4 Hours Temp Pulse Resp BP Pulse Ox 08/08/19 11:47 97.5 F L 76 18 125/87 94 Other: Gen: alert and oriented x3, NAD, Vitals noted. Head: atraumatic normocephalic Eyes: Anicteric sclera, EOMI, no nystagmus ENT: MMM, oropharynx clear Neck: trachea midline, no lymphadenopathy CV: Irregular rhythm, regular rate, no murmurs gallops rubs Resp: mild scattered wheezes noted throughout, no rales or rhonchi, nonlabored breathing Abd: Soft, nontender, nondistended, normal BS Ext: no peripheral edema, rash, clubbing, cyanosis Neuro: no focal deficits appreciated, strength/sensation intact Results 08/08/19 04:16 08/08/19 04:16 Lab Results 08/07/19 08/07/19 08/08/19 17:03 22:33 04:16 WBC 8.6 Hgb 14.2 Hct 42.7 Plt Count 161 Sodium Potassium Chloride Carbon Dioxide BUN Creatinine Glucose Calcium Troponin I 0.03 0.03 08/08/19 04:16 WBC Hgb Hct Plt Count Sodium 137 Potassium 4.3 Chloride 106 Carbon Dioxide 22 L BUN 38 H Creatinine 1.81 H Glucose 96 Calcium 8.9 Troponin I Consult Discharge Plan - Plan Referrals: Chely Steinberg CNP [Primary Care Provider] - (Appointment has been requested.) Matthew Zepeda MD [Partnered Physician] - Prescriptions: Meclizine [Antivert] 12.5 mg PO TID PRN #20 tablet PRN Reason: Vertigo ALPRAZolam [Xanax 1 MG Tablet] 0.5 mg PO BID PRN 5 Days #5 tab PRN Reason: Anxiety Prescription Printed < A - Last Filed: 08/08/19 21:41> Date of Encounter: 08/08/19 Assessment and Plan Discussion w patient/family: The assessment and plan as outlined above was discussed with the patient and/or family members who expressed understanding and agreement. All questions were answered. Thank you for involving us in the care of your patient. Please call with any questions. Results 08/08/19 04:16 08/08/19 04:16 Lab Results 08/07/19 08/08/19 08/08/19 22:33 04:16 04:16 WBC 8.6 Hgb 14.2 Hct 42.7 Plt Count 161 Sodium 137 Potassium 4.3 Chloride 106 Carbon Dioxide 22 L BUN 38 H Creatinine 1.81 H Glucose 96 Calcium 8.9 Troponin I 0.03 - Attending Attestation I have personally performed a face to face evaluation on this patient. I have reviewed and agree with the documented findings and care plan as documented by the resident. 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 Conor Talbot MD [facility]
--- NOTE | 2019-08-08 15:15 | Discharge Summary ---
- NOTES TO OUTPATIENT PROVIDER Notes to Outpatient Provider: f/u with PCP in one week. f/u with Cardiology Dr. Zepeda as scheduled. Please wear the holter monitor for 48 hrs. Medication changes: Changed Coreg to 3.125mg PO BID. Lasix to 20 mg PO BID. Xanax to 0.5mg PO BID as needed Date of Encounter: 08/08/19 Time of Encounter: 15:11 - Discharge Diagnosis (1) Ataxic gait Priority: Primary Status: Acute (2) Chronic a-fib Priority: Primary Status: Chronic (3) History of CVA (cerebrovascular accident) Priority: Secondary Status: Chronic (4) COPD (chronic obstructive pulmonary disease) Priority: Secondary Status: Chronic Qualifiers: COPD type: unspecified COPD Qualified Code(s): J44.9 - Chronic obstructive pulmonary disease, unspecified (5) Hyperlipidemia Priority: Secondary Status: Chronic Qualifiers: Hyperlipidemia type: unspecified Qualified Code(s): E78.5 - Hyperlipidemia, unspecified (6) Hypertension Priority: Secondary Status: Chronic Qualifiers: Hypertension type: essential hypertension Qualified Code(s): I10 - Essential (primary) hypertension (7) GERD (gastroesophageal reflux disease) Priority: Secondary Status: Chronic Qualifiers: Esophagitis presence: esophagitis presence not specified Qualified Code(s): K21.9 - Gastro-esophageal reflux disease without esophagitis Hospital course: Mr. Lynn is a 78 year old male with known past medical history of chronic atrial fibrillation on Paradaxa for anti coagulation, COPD, coronary artery disease s/p PCI, CVA, GERD, hyperlipidemia, hypertension and CKD-3 who had Left thalamic infarct in 03/03, currently he is about f/u with EP consumer safety officer Dr. Zepeda for possible cardiac ablation for his chronic Afib problem, now he presented to ER with ataxic gait and confusion started this morning. Patient stated this morning when he woke up he felt lightheadedness/dizzy and felt unsteady / wobbly on his feet but did not pass out. He had a similar episode again this morning before he came to the ER. He denied any chest pain/shortness of breath. Patient did mention that his consumer safety officer recently cut down on his Coreg to 3.125 mg b.i.d and recommend f/u with EP Card Dr. Zepeda for possible pacemaker placement. He was admitted in the hospital and placed him on court recording monitor. His serial troponin came back as negative. He denied any active chest pain. His EKG did not show any acute ischemic changes. Patient was evaluated by consumer safety officer who recommend to continue Coreg at 3.125mg PO BID and sent home with holter monitor. Also recommend to f.u with EP Card Dr. Zepeda as an out pt. For his ataxic gait we did MRI of Brain to rule out CVA which came back as negative for infarction. Patient was evaluated by PT/OT who recommended ECF placement for short-term rehab. So will discharge him to ECF in stable condition today. - Time Spent with Patient Total time spent providing and/or coordinating discharge services: - Discharge Medications Prescriptions: Continued Duloxetine HCl [Cymbalta] 60 mg PO QAM Finasteride [Proscar] 5 mg PO QPM Montelukast [Singulair] 10 mg PO QPM Nitroglycerin 0.4 mg PO Q5M PRN MDD [id number] CALL 911 PRN Reason: Chest Pain Omeprazole [PriLOSEC] 20 mg PO QPM Zolpidem [Ambien] 10 mg PO HS Atorvastatin Calcium [Lipitor] 80 mg PO QPM Budesonide/Formoterol 160/4.5 [Symbicort 160/4.5] 2 puff IH BID Isosorbide MONOnitrate [Isosorbide Mononitrate ER] 240 mg PO QPM Buspirone HCl [Buspar] 7.5 mg PO BID Dabigatran [Pradaxa] 75 mg PO BID Cholecalciferol (D-3) [Vitamin D] 1,000 unit PO DAILY Multivit-Min/Folic/Vit K/Lycop [Men's 50 Plus Multivitamin Tab] 1 tab PO DAILY Acetaminophen [Tylenol] 650 mg PO Q6HR PRN tablet PRN Reason: Mild Pain/Fever Clopidogrel [Plavix] 75 mg PO DAILY tablet Docusate [Colace] 100 mg PO BID PRN capsule PRN Reason: Constipation Amlodipine Besylate 10 mg PO DAILY Ammonium Lactate [Lesley-Hydrolac] 1 appl TP BID Aspirin 81 mg PO DAILY Sodium Chloride [Sodium Chloride Tab] 1 gm PO DAILY Solifenacin Succinate [Vesicare] 5 mg PO DAILY Valsartan [Diovan] 80 mg PO DAILY Changed Carvedilol [Coreg] 3.125 mg PO BIDWM #0 ALPRAZolam [Xanax 1 MG Tablet] 0.5 mg PO BID PRN 5 Days #5 tab PRN Reason: Anxiety Furosemide [Lasix] 20 mg PO BID #0 Home Medications: Atorvastatin Calcium [Lipitor] 80 mg PO QPM 12/27/18 [History] Budesonide/Formoterol 160/4.5 [Symbicort 160/4.5] 2 puff IH BID 12/27/18 [History] Duloxetine HCl [Cymbalta] 60 mg PO QAM 12/27/18 [History] Finasteride [Proscar] 5 mg PO QPM 12/27/18 [History] Isosorbide MONOnitrate [Isosorbide Mononitrate ER] 240 mg PO QPM 12/27/18 [History] Montelukast [Singulair] 10 mg PO QPM 12/27/18 [History] Nitroglycerin 0.4 mg PO Q5M PRN MDD [id number] CALL 911 12/27/18 [History] Omeprazole [PriLOSEC] 20 mg PO QPM 12/27/18 [History] Zolpidem [Ambien] 10 mg PO HS 12/27/18 [History] Buspirone HCl [Buspar] 7.5 mg PO BID 02/27/19 [History] Cholecalciferol (D-3) [Vitamin D] 1,000 unit PO DAILY 02/27/19 [History] Dabigatran [Pradaxa] 75 mg PO BID 02/27/19 [History] Multivit-Min/Folic/Vit K/Lycop [Men's 50 Plus Multivitamin Tab] 1 tab PO DAILY 02/27/19 [History] Acetaminophen [Tylenol] 650 mg PO Q6HR PRN tablet 02/28/19 [Rx] Clopidogrel [Plavix] 75 mg PO DAILY tablet 02/28/19 [Rx] Docusate [Colace] 100 mg PO BID PRN capsule 02/28/19 [Rx] Amlodipine Besylate 10 mg PO DAILY 08/07/19 [History] Ammonium Lactate [Lesley-Hydrolac] 1 appl TP BID 08/07/19 [History] Aspirin 81 mg PO DAILY 08/07/19 [History] Sodium Chloride [Sodium Chloride Tab] 1 gm PO DAILY 08/07/19 [History] Solifenacin Succinate [Vesicare] 5 mg PO DAILY 08/07/19 [History] Valsartan [Diovan] 80 mg PO DAILY 08/07/19 [History] ALPRAZolam [Xanax 1 MG Tablet] 0.5 mg PO BID PRN 5 Days #5 tab 08/08/19 [Rx] Carvedilol [Coreg] 3.125 mg PO BIDWM #0 08/08/19 [Rx] Furosemide [Lasix] 20 mg PO BID #0 08/08/19 [Rx] Allergies/Adverse Reactions: Allergy/AdvReac Type Severity Reaction Status Date / Time epinephrine AdvReac See Verified 08/07/19 22:18 Comments Tizanidine AdvReac Dizziness Verified 08/07/19 22:18 Date of admission: 08/07/19 11:27 Primary care physician: Chely Steinberg CNP Consults: 08/07/19 11:45 Consult to Cardiology [CONS] Routine Comment: Consulting Provider: Cardiology Katina Reason for Consult: ?? Tachy yoshi syndrome Time Notified: 11:45 Call Completed: Yes 08/08/19 07:08 Consult to Occupational Therapy [CONS] Routine Comment: Evaluate, develop and implement POC Reason for Consult: eval Does patient have active BEDREST order?: No Is patient medically & hemodynamically stable?: No Patient assessed for mobility or mobilized this visit?: Yes Consult to Physical Therapy [CONS] Routine Comment: Evaluate, develop and implement POC Reason for Consult: eval Does patient have active BEDREST order?: No Is patient medically & hemodynamically stable?: No Patient assessed for mobility or mobilized this visit?: Yes - Constitutional Vitals: Temp Pulse Resp BP Pulse Ox 97.5 F L 76 18 125/87 94 08/08/19 11:47 08/08/19 11:47 08/08/19 11:47 08/08/19 11:47 08/08/19 11:47 General appearance: Present: cooperative, A&O X 3, no acute distress, answers questions appropriately Exam: a - Head Head exam: Present: atraumatic, normal inspection - Neck Neck exam general surgery: Present: normal inspection, supple - Respiratory Respiratory exam: Present: decreased breath sounds. Absent: rales, respiratory distress, rhonchi, wheezes - Cardiovascular Cardiovascular exam: Present: irregular rhythm, +S1, +S2. Absent: systolic murmur, tachycardia - GI/Abdominal GI/Abdominal exam: Present: normal bowel sounds, soft. Absent: rebound, rigid, tenderness - Extremities Exam Extremities exam: Present: normal inspection. Absent: pedal edema, tenderness - Back Exam Back exam: Absent: CVA tenderness (L), CVA tenderness (R) - Neurological Exam Neurological exam: Present: alert, CN II-XII intact, oriented X3, strengths equal and symetr throughout. Absent: pronater drift, facial droop, speech deficit - Psychiatric Psychiatric exam: Present: depressed - Patient Status Disposition: Transfer SNF Condition: Good Overall status at discharge: patient is back to baseline - Discharge Instructions Follow Up With: Chely Steinberg CNP [Primary Care Provider] - (Appointment has been reques edward.) Matthew Zepeda MD [Partnered Physician] - - Diet and Activity Activity: as per physical therapy, increase activity as tolerated Diet: low salt diet
--- NOTE | 2019-08-08 15:20 | Physician Discharge Referral ---
ExtendedCare Referral Info Transfer To: F Provider in Charge after Transfer: PCP Institutional Level of Care: Skilled - Diagnosis (1) Ataxic gait Status: Acute (2) Chronic a-fib Status: Chronic (3) History of CVA (cerebrovascular accident) Status: Chronic (4) COPD (chronic obstructive pulmonary disease) Status: Chronic (5) Hyperlipidemia Status: Chronic (6) Hypertension Status: Chronic (7) GERD (gastroesophageal reflux disease) Status: Chronic - Transfer Medications Prescriptions: Meclizine [Antivert] 12.5 mg PO TID PRN #20 tablet PRN Reason: Vertigo ALPRAZolam [Xanax 1 MG Tablet] 0.5 mg PO BID PRN 5 Days #5 tab PRN Reason: Anxiety Prescription Printed Home Medications: Atorvastatin Calcium [Lipitor] 80 mg PO QPM 12/27/18 [History] Budesonide/Formoterol 160/4.5 [Symbicort 160/4.5] 2 puff IH BID 12/27/18 [History] Duloxetine HCl [Cymbalta] 60 mg PO QAM 12/27/18 [History] Finasteride [Proscar] 5 mg PO QPM 12/27/18 [History] Isosorbide MONOnitrate [Isosorbide Mononitrate ER] 240 mg PO QPM 12/27/18 [History] Montelukast [Singulair] 10 mg PO QPM 12/27/18 [History] Nitroglycerin 0.4 mg PO Q5M PRN MDD [id number] CALL 911 12/27/18 [History] Omeprazole [PriLOSEC] 20 mg PO QPM 12/27/18 [History] Zolpidem [Ambien] 10 mg PO HS 12/27/18 [History] Buspirone HCl [Buspar] 7.5 mg PO BID 02/27/19 [History] Cholecalciferol (D-3) [Vitamin D] 1,000 unit PO DAILY 02/27/19 [History] Dabigatran [Pradaxa] 75 mg PO BID 02/27/19 [History] Multivit-Min/Folic/Vit K/Lycop [Men's 50 Plus Multivitamin Tab] 1 tab PO DAILY 02/27/19 [History] Acetaminophen [Tylenol] 650 mg PO Q6HR PRN tablet 02/28/19 [Rx] Clopidogrel [Plavix] 75 mg PO DAILY tablet 02/28/19 [Rx] Docusate [Colace] 100 mg PO BID PRN capsule 02/28/19 [Rx] Amlodipine Besylate 10 mg PO DAILY 08/07/19 [History] Ammonium Lactate [Lesley-Hydrolac] 1 appl TP BID 08/07/19 [History] Aspirin 81 mg PO DAILY 08/07/19 [History] Sodium Chloride [Sodium Chloride Tab] 1 gm PO DAILY 08/07/19 [History] Solifenacin Succinate [Vesicare] 5 mg PO DAILY 08/07/19 [History] Valsartan [Diovan] 80 mg PO DAILY 08/07/19 [History] ALPRAZolam [Xanax 1 MG Tablet] 0.5 mg PO BID PRN 5 Days #5 tab 08/08/19 [Rx] Carvedilol [Coreg] 3.125 mg PO BIDWM #0 08/08/19 [Rx] Furosemide [Lasix] 20 mg PO BID #0 08/08/19 [Rx] Meclizine [Antivert] 12.5 mg PO TID PRN #20 tablet 08/08/19 [Rx] Allergies/Adverse Reactions: Allergy/AdvReac Type Severity Reaction Status Date / Time epinephrine AdvReac See Verified 08/07/19 22:18 Comments Tizanidine AdvReac Dizziness Verified 08/07/19 22:18 - Respiratory Orders Smoking Cessation: Smoking cessation has been advised. For more information, call the [place] Tobacco Quit Line at 9-609-HBBE-NOW. CERTIFICATION: I certify that the transfer of the above named patient to an Extended Care Facility is necessary for the continuing treatment of the diagnosis listed. The above information is true and accurate reflection of patient's current condition. Confidential - Redisclosure prohibited without a patient's written consent.
[2019-08-08 15:36] VITALS: BP 132/91
[2019-08-08] MEDS ORDERED: Furosemide 20 MG TABLET PO SCH (17:00)
[2019-08-08] MEDS ORDERED: Isosorbide MONOnitrate (24 HR) 60 MG TAB.ER.24H PO SCH (18:00)
[2019-08-08] MEDS ORDERED: Finasteride 5 MG TABLET PO SCH (18:00)
[2019-08-09] MEDS ORDERED: Cholecalciferol (D-3) 1,000 UNIT (25MCG) TABLET PO SCH (09:00)
[2019-08-09] MEDS ORDERED: Valsartan 160 MG TABLET PO SCH (09:00)
--- NOTE | 2019-08-10 12:15 | Electrocardiograph Report ---
[address] [place], [place] [address] Test Date: 2019-08-08 Pat Name: [facility] Department: 113 Room: 3B22 Gender: M Computer Technician: : 1940 Requested By: Samantha Palacios Order Number: [id number] Reading MD: Matthew Zepeda Measurements Intervals [place] Rate: 84 P: VT: 0 QRS: -20 QRSD: 93 T: 168 QT: 372 QTc: 412 Interpretive Statements ATRIAL FIBRILLATION WITH ABERRANT CONDUCTION OR VENTRICULAR PREMATURE COMPLEXES MODERATE VOLTAGE CRITERIA FOR LVH, CONSIDER NORMAL VARIANT ST DEVIATION AND MODERATE T-WAVE ABNORMALITY, CONSIDER LATERAL ISCHEMIA Electronically Signed On 08-10-2019 12:13:23 EDT by Matthew Zepeda
== END 2019-08-08 18:13 ==
LOC: EMEROOARM 08:25 → 2NENU 08:25 → SUATTDRO 11:27 → 3BNU 11:32 → 2NENU 11:40 → 3BNU 11:52
PROVIDERS: ADMIT Internal Medicine; ATTEND Family Medicine

== ENCOUNTER 2021-05-10 08:27 | Inpatient (IN) ==
[2021-05-10] MEDS ORDERED: *HR* HYDROcodone/Acet 5/325 mg TABLET PO ONE (08:47)
[2021-05-10 11:58] LABS: Basophils % 0.3 %; Eosinophils # 0.2 K/mcL (0.0-0.6); Eosinophils % 1.4 %; Hematocrit 42.8 % (37.5-50.1); Hemoglobin 14.1 g/dL (12.9-16.9); Immature Granulocytes % 0.6 % (0-4); Lymphocytes # 0.8 K/mcL (0.6-4.6); Lymphocytes % 6.3 %; Mean Corpuscular HGB Conc 32.9 g/dL (31.6-35.5); Mean Corpuscular Hemoglobin 28.8 pg (28.0-33.3); Mean Corpuscular Volume 87.3 fL (83.0-100.0); Mean Platelet Volume 9.9 fL (9.4-12.4); Monocytes # 1.1 K/mcL (0.0-1.3); Monocytes % 9.1 %; Neutrophils # 10.3 K/mcL (1.6-8.9); Platelet Count 171 K/mcL (140-400); Red Cell Distribution Width 14.6 % (11.5-14.5); Segmented Neutrophils % 82.3 %; White Blood Count 12.6 K/mcL (4.3-11.1)
[2021-05-10 12:17] LABS: Calcium 9.1 mg/dL (8.6-10.3); Potassium 5.6 mEq/L (3.5-5.1)
[2021-05-10] MEDS ORDERED: Albuterol 2.5 MG/3 ML NEBULIZER IH ONE (13:15)
[2021-05-10] MEDS ORDERED: Naloxone 0.4 MG/ML INJ IVP PRN (13:43)
[2021-05-10] MEDS ORDERED: Acetaminophen 325 MG TABLET PO PRN (13:43)
[2021-05-10] MEDS ORDERED: Melatonin 3 MG TABLET PO PRN (13:43)
[2021-05-10 13:52] LABS: Bilirubin,Urine Negative (Negative); Blood,Urine Negative (Negative); Clarity,Urine Clear (Clear); Color,Urine Light-Yellow (Yellow); Glucose,Urine (UA) Normal (Normal); Ketones,Urine Negative (Negative); Leukocyte Esterase,Urine Negative (Negative); Nitrite,Urine Negative (Negative); Protein,Urine Negative (Neg-Trace); Specific Gravity,Urine 1.009 (1.010-1.025); Urobilinogen,Urine Normal (Normal)
[2021-05-10] MEDS ORDERED: Ipratropium/Albuterol Neb 3 ML IH PRN (15:14)
[2021-05-10] MEDS ORDERED: Perflutren Lipid Microsphere 1.3 ML in 0.9 % Sodium Chloride 8.7 ML IVP PRN (15:16)
[2021-05-10] MEDS: 0.9 % Sodium Chloride 1,000 ML IVC SCH ×2 (15:35→16:01)
[2021-05-10] MEDS ORDERED: Sennosides/Docusate Sodium TABLET PO PRN (15:39)
[2021-05-10] MEDS: Ipratropium/Albuterol Neb 3 ML IH SCH ×2 (15:59→22:37)
[2021-05-10] MEDS: carvediloL 6.25 MG TABLET PO SCH (16:01)
[2021-05-10 16:42] LABS: Calcium 9.4 mg/dL (8.6-10.3); Potassium 5.5 mEq/L (3.5-5.1)
[2021-05-10] MEDS: *HR* Dabigatran 75 MG CAPSULE PO SCH (20:45)
[2021-05-10] MEDS: *HR* OxyCODONE Immed Rel 5 MG TABLET PO PRN (20:45)
[2021-05-10] MEDS: Budesonide/Formoterol 160/4.5 1 PUFF INH IH SCH (22:36)
[2021-05-11 00:52] LABS: Basophils % 0.1 %; Hematocrit 42.5 % (37.5-50.1); Hemoglobin 14.1 g/dL (12.9-16.9); Immature Granulocytes % 0.4 % (0-4); Lymphocytes # 0.2 K/mcL (0.6-4.6); Lymphocytes % 2.7 %; Mean Corpuscular HGB Conc 33.2 g/dL (31.6-35.5); Mean Corpuscular Hemoglobin 28.7 pg (28.0-33.3); Mean Corpuscular Volume 86.4 fL (83.0-100.0); Mean Platelet Volume 10.4 fL (9.4-12.4); Monocytes # 0.2 K/mcL (0.0-1.3); Monocytes % 1.8 %; Neutrophils # 8.5 K/mcL (1.6-8.9); Platelet Count 184 K/mcL (140-400); Red Blood Count 4.92 M/mcL (4.19-5.50); Red Cell Distribution Width 14.2 % (11.5-14.5); White Blood Count 8.9 K/mcL (4.3-11.1)
[2021-05-11 00:59] LABS: INR 1.5; Prothrombin Time 17.1 Seconds (9.4-12.1)
[2021-05-11 01:06] LABS: Albumin 3.9 g/dL (3.5-5.7); Albumin/Globulin Ratio 1.5 (1.1-2.2); Bilirubin,Total 0.7 mg/dL (0.3-1.0); Calcium 8.8 mg/dL (8.6-10.3); Chol/HDL Ratio 2.6 (0-4.9); Globulin 2.6 g/dL (2.4-3.5); Magnesium 2.2 mg/dL (1.6-2.6); Phosphorous 4.2 mg/dL (2.7-4.5); Potassium 5.1 mEq/L (3.5-5.1); Total Protein 6.5 g/dL (6.4-8.9)
[2021-05-11] MEDS: Ipratropium/Albuterol Neb 3 ML IH SCH ×4 (03:52→23:26)
[2021-05-11] MEDS: 0.9 % Sodium Chloride 1,000 ML IVC SCH (04:22)
[2021-05-11] MEDS: *HR* OxyCODONE Immed Rel 5 MG TABLET PO PRN ×3 (06:37→20:18)
[2021-05-11 06:50] LABS: Calcium 8.8 mg/dL (8.6-10.3); Potassium 5.2 mEq/L (3.5-5.1)
[2021-05-11] MEDS ORDERED: SODIUM ZIRCONIUM CYCLOSILICATE 5 GM POWD.PACK PO ONE (07:26)
[2021-05-11] MEDS ORDERED: Insulin Human Regular 10 UNIT in 0.9 % Sodium Chloride 10 ML IV ONE (07:27)
[2021-05-11] MEDS ORDERED: Calcium Gluconate 1gm/50mL 1 GM/50 ML BAG IVPB ONE (07:27)
[2021-05-11] MEDS ORDERED: *HR* Dextrose 50 % in Water (Vial) 50 ML VIAL IVP ONE (07:27)
[2021-05-11] MEDS: predniSONE 20 MG TABLET PO SCH (08:57)
[2021-05-11] MEDS: Isosorbide MONOnitrate (24 HR) 60 MG TAB.ER.24H PO SCH (08:57)
[2021-05-11] MEDS: carvediloL 6.25 MG TABLET PO SCH ×2 (08:57→16:32)
[2021-05-11] MEDS: Finasteride 5 MG TABLET PO SCH (08:57)
[2021-05-11] MEDS: *HR* Dabigatran 75 MG CAPSULE PO SCH ×2 (08:59→20:18)
[2021-05-11] MEDS: Budesonide/Formoterol 160/4.5 1 PUFF INH IH SCH ×2 (11:00→23:26)
[2021-05-11] MEDS ORDERED: traZODone 50 MG TABLET PO PRN (12:49)
[2021-05-11] MEDS: Pantoprazole 40 MG VIAL IVP SCH (14:08)
[2021-05-11] MEDS: Azithromycin 250 MG TABLET PO SCH (14:08)
[2021-05-11 16:25] LABS: Calcium 8.7 mg/dL (8.6-10.3); Potassium 4.9 mEq/L (3.5-5.1)
[2021-05-11] MEDS: Ondansetron 4 MG/2 ML VIAL IVP PRN (16:31)
[2021-05-12 00:48] LABS: Calcium 8.6 mg/dL (8.6-10.3); Potassium 5.4 mEq/L (3.5-5.1)
[2021-05-12 02:22] LABS: Hematocrit 37.6 % (37.5-50.1); Hemoglobin 12.9 g/dL (12.9-16.9); Mean Corpuscular HGB Conc 34.3 g/dL (31.6-35.5); Mean Corpuscular Hemoglobin 29.4 pg (28.0-33.3); Mean Corpuscular Volume 85.6 fL (83.0-100.0); Mean Platelet Volume 9.9 fL (9.4-12.4); Platelet Count 192 K/mcL (140-400); Red Blood Count 4.39 M/mcL (4.19-5.50); Red Cell Distribution Width 14.6 % (11.5-14.5)
[2021-05-12 02:23] LABS: White Blood Count 14.1 K/mcL (4.3-11.1)
[2021-05-12 02:41] LABS: Magnesium 2.1 mg/dL (1.6-2.6); Phosphorous 4.6 mg/dL (2.7-4.5)
[2021-05-12] MEDS: Ipratropium/Albuterol Neb 3 ML IH SCH ×4 (03:53→21:30)
[2021-05-12] MEDS ORDERED: Insulin Regular, Human 100 UNIT/ML IV ONE (07:35)
[2021-05-12] MEDS ORDERED: Calcium Gluconate 1gm/50mL 1 GM/50 ML BAG IVPB ONE (07:35)
[2021-05-12] MEDS ORDERED: *HR* Dextrose 50 % in Water (Syg) 50 ML SYRINGE IVP ONE (07:35)
[2021-05-12] MEDS ORDERED: SODIUM ZIRCONIUM CYCLOSILICATE 5 GM POWD.PACK PO ONE (07:36)
[2021-05-12] MEDS ORDERED: Insulin Human Regular 10 UNIT in 0.9 % Sodium Chloride 10 ML IV ONE (07:48)
[2021-05-12 08:59] LABS: Potassium 4.9 mEq/L (3.5-5.1)
[2021-05-12] MEDS ORDERED: FESOTERODINE FUMARATE 4 MG PO SCH (09:00)
[2021-05-12] MEDS: Budesonide/Formoterol 160/4.5 1 PUFF INH IH SCH ×2 (09:19→21:30)
[2021-05-12] MEDS: carvediloL 6.25 MG TABLET PO SCH ×2 (09:43→16:55)
[2021-05-12] MEDS: Multivit/Ca/Min/Fe/FA 1 TAB TABLET PO SCH (09:44)
[2021-05-12] MEDS: *HR* Dabigatran 75 MG CAPSULE PO SCH ×2 (09:44→21:14)
[2021-05-12] MEDS: Pantoprazole 40 MG VIAL IVP SCH (09:44)
[2021-05-12] MEDS: polyethylene glycoL 3350 17 GM POWD.PACK PO SCH (09:44)
[2021-05-12] MEDS: predniSONE 20 MG TABLET PO SCH (09:44)
[2021-05-12] MEDS: Finasteride 5 MG TABLET PO SCH (09:44)
[2021-05-12] MEDS: Isosorbide MONOnitrate (24 HR) 60 MG TAB.ER.24H PO SCH (09:44)
[2021-05-12] MEDS: *HR* HYDROcodone/Acet 5/325 mg TABLET PO PRN (09:44)
[2021-05-12] MEDS ORDERED: *HR* Dextrose 50 % in Water (Vial) 50 ML VIAL IVP ONE (09:45)
[2021-05-12] MEDS ORDERED: 0.9 % Sodium Chloride 1,000 ML IVC SCH (12:30)
[2021-05-12] MEDS: Azithromycin 250 MG TABLET PO SCH (13:43)
[2021-05-12] MEDS ORDERED: *HR* HYDROmorphone 2 MG TABLET PO ONE (15:18)
[2021-05-13 02:36] LABS: Hematocrit 35.4 % (37.5-50.1); Hemoglobin 12.3 g/dL (12.9-16.9); Mean Corpuscular HGB Conc 34.7 g/dL (31.6-35.5); Mean Corpuscular Hemoglobin 29.9 pg (28.0-33.3); Mean Corpuscular Volume 85.9 fL (83.0-100.0); Mean Platelet Volume 9.8 fL (9.4-12.4); Platelet Count 166 K/mcL (140-400); Red Blood Count 4.12 M/mcL (4.19-5.50); Red Cell Distribution Width 14.7 % (11.5-14.5); White Blood Count 11.6 K/mcL (4.3-11.1)
[2021-05-13 02:53] LABS: Calcium 8.2 mg/dL (8.6-10.3); Magnesium 1.9 mg/dL (1.6-2.6); Phosphorous 4.3 mg/dL (2.7-4.5)
[2021-05-13] MEDS: Ipratropium/Albuterol Neb 3 ML IH SCH ×4 (03:38→21:50)
[2021-05-13] MEDS: Budesonide/Formoterol 160/4.5 1 PUFF INH IH SCH ×2 (09:21→21:50)
[2021-05-13] MEDS: SODIUM ZIRCONIUM CYCLOSILICATE 5 GM POWD.PACK PO SCH (09:27)
[2021-05-13] MEDS: polyethylene glycoL 3350 17 GM POWD.PACK PO SCH (09:28)
[2021-05-13] MEDS: Isosorbide MONOnitrate (24 HR) 60 MG TAB.ER.24H PO SCH (09:30)
[2021-05-13] MEDS: *HR* Dabigatran 75 MG CAPSULE PO SCH ×2 (09:30→21:08)
[2021-05-13] MEDS: Finasteride 5 MG TABLET PO SCH (09:30)
[2021-05-13] MEDS: Multivit/Ca/Min/Fe/FA 1 TAB TABLET PO SCH (09:30)
[2021-05-13] MEDS: predniSONE 20 MG TABLET PO SCH (09:30)
[2021-05-13] MEDS: carvediloL 6.25 MG TABLET PO SCH (09:30)
[2021-05-13] MEDS: Pantoprazole 40 MG VIAL IVP SCH (09:31)
[2021-05-13] MEDS: *HR* HYDROcodone/Acet 5/325 mg TABLET PO PRN (09:37)
[2021-05-13] MEDS ORDERED: *HR* OxyCODONE Immed Rel 5 MG TABLET PO PRN (09:49)
[2021-05-13] MEDS: *HR* HYDROmorphone 4 MG TABLET PO PRN (11:42)
[2021-05-13] MEDS: Azithromycin 250 MG TABLET PO SCH (13:09)
[2021-05-13] MEDS: carvediloL 25 MG TABLET PO SCH (16:22)
[2021-05-13] MEDS: Sennosides/Docusate Sodium TABLET PO SCH (21:08)
[2021-05-13] MEDS: Ondansetron 4 MG/2 ML VIAL IVP PRN (21:08)
[2021-05-14 01:15] LABS: Lambda Qnt Free Light Chains 28.22 mg/L (5.71-26.30)
[2021-05-14 02:59] LABS: Hematocrit 38.2 % (37.5-50.1); Hemoglobin 13.3 g/dL (12.9-16.9); Mean Corpuscular HGB Conc 34.8 g/dL (31.6-35.5); Mean Corpuscular Hemoglobin 29.7 pg (28.0-33.3); Mean Corpuscular Volume 85.3 fL (83.0-100.0); Mean Platelet Volume 9.8 fL (9.4-12.4); Platelet Count 179 K/mcL (140-400); Red Blood Count 4.48 M/mcL (4.19-5.50); Red Cell Distribution Width 14.6 % (11.5-14.5); White Blood Count 9.9 K/mcL (4.3-11.1)
[2021-05-14 03:10] LABS: Calcium 8.6 mg/dL (8.6-10.3); Magnesium 1.9 mg/dL (1.6-2.6); Phosphorous 4.8 mg/dL (2.7-4.5); Potassium 5.8 mEq/L (3.5-5.1)
[2021-05-14] MEDS: Ipratropium/Albuterol Neb 3 ML IH SCH ×4 (03:35→22:07)
[2021-05-14] MEDS: SODIUM ZIRCONIUM CYCLOSILICATE 5 GM POWD.PACK PO SCH (08:43)
[2021-05-14] MEDS: polyethylene glycoL 3350 17 GM POWD.PACK PO SCH (08:44)
[2021-05-14] MEDS: predniSONE 20 MG TABLET PO SCH (08:48)
[2021-05-14] MEDS: Isosorbide MONOnitrate (24 HR) 60 MG TAB.ER.24H PO SCH (08:48)
[2021-05-14] MEDS: Pantoprazole 40 MG VIAL IVP SCH (08:48)
[2021-05-14] MEDS: *HR* Dabigatran 75 MG CAPSULE PO SCH ×2 (08:48→20:45)
[2021-05-14] MEDS: Multivit/Ca/Min/Fe/FA 1 TAB TABLET PO SCH (08:48)
[2021-05-14] MEDS: Sennosides/Docusate Sodium TABLET PO SCH ×2 (08:48→20:45)
[2021-05-14] MEDS: Finasteride 5 MG TABLET PO SCH (08:49)
[2021-05-14] MEDS: carvediloL 25 MG TABLET PO SCH ×2 (08:49→17:32)
[2021-05-14] MEDS ORDERED: SODIUM ZIRCONIUM CYCLOSILICATE 5 GM POWD.PACK PO ONE (09:22)
[2021-05-14 10:43] LABS: Kappa Qnt Free Light Chains 16.4 mg/L (3.30-19.40)
[2021-05-14] MEDS: Budesonide/Formoterol 160/4.5 1 PUFF INH IH SCH ×2 (10:52→22:06)
[2021-05-14] MEDS: Azithromycin 250 MG TABLET PO SCH (13:14)
[2021-05-14] MEDS: *HR* HYDROmorphone 4 MG TABLET PO PRN (13:49)
[2021-05-15 02:45] LABS: Basophils % 0.1 %; Hematocrit 37.8 % (37.5-50.1); Hemoglobin 13.3 g/dL (12.9-16.9); Immature Granulocytes % 0.7 % (0-4); Lymphocytes # 0.4 K/mcL (0.6-4.6); Lymphocytes % 3.9 %; Mean Corpuscular HGB Conc 35.2 g/dL (31.6-35.5); Mean Corpuscular Hemoglobin 29.8 pg (28.0-33.3); Mean Corpuscular Volume 84.6 fL (83.0-100.0); Mean Platelet Volume 10.2 fL (9.4-12.4); Monocytes # 0.9 K/mcL (0.0-1.3); Monocytes % 8.6 %; Neutrophils # 8.9 K/mcL (1.6-8.9); Platelet Count 192 K/mcL (140-400); Red Blood Count 4.47 M/mcL (4.19-5.50); Red Cell Distribution Width 14.4 % (11.5-14.5); Segmented Neutrophils % 86.7 %; White Blood Count 10.2 K/mcL (4.3-11.1)
[2021-05-15 03:07] LABS: Calcium 8.5 mg/dL (8.6-10.3); Magnesium 2.1 mg/dL (1.6-2.6); Phosphorous 4.6 mg/dL (2.7-4.5); Potassium 5.6 mEq/L (3.5-5.1)
[2021-05-15] MEDS: Ipratropium/Albuterol Neb 3 ML IH SCH ×4 (03:42→22:13)
[2021-05-15] MEDS ORDERED: *HR* Dextrose 50 % in Water (Vial) 50 ML VIAL IVP ONE (08:48)
[2021-05-15] MEDS ORDERED: Insulin Human Regular 10 UNIT in 0.9 % Sodium Chloride 10 ML IV ONE (08:48)
[2021-05-15] MEDS: Pantoprazole 40 MG VIAL IVP SCH (09:29)
[2021-05-15] MEDS: polyethylene glycoL 3350 17 GM POWD.PACK PO SCH (09:30)
[2021-05-15] MEDS: SODIUM ZIRCONIUM CYCLOSILICATE 5 GM POWD.PACK PO SCH (09:30)
[2021-05-15] MEDS: Multivit/Ca/Min/Fe/FA 1 TAB TABLET PO SCH (09:31)
[2021-05-15] MEDS: Finasteride 5 MG TABLET PO SCH (09:31)
[2021-05-15] MEDS: *HR* Dabigatran 75 MG CAPSULE PO SCH ×2 (09:31→21:01)
[2021-05-15] MEDS: carvediloL 25 MG TABLET PO SCH ×2 (09:31→16:14)
[2021-05-15] MEDS: Isosorbide MONOnitrate (24 HR) 60 MG TAB.ER.24H PO SCH (09:31)
[2021-05-15] MEDS: Sennosides/Docusate Sodium TABLET PO SCH ×2 (09:31→21:01)
[2021-05-15] MEDS: predniSONE 20 MG TABLET PO SCH (09:31)
[2021-05-15] MEDS: *HR* HYDROmorphone 4 MG TABLET PO PRN (09:39)
[2021-05-15] MEDS: Budesonide/Formoterol 160/4.5 1 PUFF INH IH SCH ×2 (09:57→22:14)
[2021-05-15] MEDS ORDERED: Methyl Salicylate/Menthol 85 APPL/85 GM TUBE TP PRN (10:31)
[2021-05-15] MEDS ORDERED: Azithromycin 250 MG TABLET PO SCH (15:45)
[2021-05-15 23:38] LABS: Alpha 2 Globulin (PEP) 0.85 g/dL (0.48-1.05); Beta Globulin (PEP) 0.61 g/dL (0.48-1.10)
[2021-05-16] MEDS: Ipratropium/Albuterol Neb 3 ML IH SCH ×2 (03:37→08:53)
[2021-05-16 07:44] LABS: Basophils % 0.1 %; Eosinophils % 0.2 %; Hematocrit 39.9 % (37.5-50.1); Hemoglobin 13.9 g/dL (12.9-16.9); Immature Granulocytes % 0.8 % (0-4); Lymphocytes # 0.6 K/mcL (0.6-4.6); Lymphocytes % 4.6 %; Mean Corpuscular HGB Conc 34.8 g/dL (31.6-35.5); Mean Corpuscular Hemoglobin 29.7 pg (28.0-33.3); Mean Corpuscular Volume 85.3 fL (83.0-100.0); Mean Platelet Volume 9.8 fL (9.4-12.4); Monocytes # 1.3 K/mcL (0.0-1.3); Monocytes % 10.2 %; Neutrophils # 10.3 K/mcL (1.6-8.9); Platelet Count 185 K/mcL (140-400); Red Blood Count 4.68 M/mcL (4.19-5.50); Red Cell Distribution Width 14.3 % (11.5-14.5); Segmented Neutrophils % 84.1 %; White Blood Count 12.3 K/mcL (4.3-11.1)
[2021-05-16 08:04] LABS: Calcium 8.6 mg/dL (8.6-10.3); Magnesium 2.1 mg/dL (1.6-2.6); Phosphorous 4.6 mg/dL (2.7-4.5); Potassium 5.3 mEq/L (3.5-5.1)
[2021-05-16] MEDS: Budesonide/Formoterol 160/4.5 1 PUFF INH IH SCH ×2 (08:53→22:27)
[2021-05-16] MEDS ORDERED: E-Z-HD (BARIUM SULF) SUSPENSION PO ONE (10:55)
[2021-05-16] MEDS ORDERED: E-Z-PAQUE (BARIUM SULF) SUSP 1 BOTTLE PO ONE (10:55)
[2021-05-16] MEDS: SODIUM ZIRCONIUM CYCLOSILICATE 5 GM POWD.PACK PO SCH (11:44)
[2021-05-16] MEDS: Pantoprazole 40 MG VIAL IVP SCH (11:44)
[2021-05-16] MEDS: polyethylene glycoL 3350 17 GM POWD.PACK PO SCH (11:44)
[2021-05-16] MEDS: Multivit/Ca/Min/Fe/FA 1 TAB TABLET PO SCH (11:45)
[2021-05-16] MEDS: carvediloL 25 MG TABLET PO SCH ×2 (11:45→16:46)
[2021-05-16] MEDS: Sennosides/Docusate Sodium TABLET PO SCH ×2 (11:46→20:42)
[2021-05-16] MEDS: predniSONE 20 MG TABLET PO SCH (11:46)
[2021-05-16] MEDS: Isosorbide MONOnitrate (24 HR) 60 MG TAB.ER.24H PO SCH (11:46)
[2021-05-16] MEDS: Finasteride 5 MG TABLET PO SCH (11:47)
[2021-05-16] MEDS: *HR* Dabigatran 75 MG CAPSULE PO SCH ×2 (11:47→20:41)
[2021-05-16 18:37] LABS: IFE Reflexed NOT DONE
[2021-05-17] MEDS: Budesonide/Formoterol 160/4.5 1 PUFF INH IH SCH ×2 (07:49→19:54)
[2021-05-17 08:44] LABS: Basophils % 0.2 %; Eosinophils % 0.2 %; Hematocrit 39.7 % (37.5-50.1); Hemoglobin 13.3 g/dL (12.9-16.9); Immature Granulocytes % 1.1 % (0-4); Lymphocytes # 0.6 K/mcL (0.6-4.6); Lymphocytes % 4.7 %; Mean Corpuscular HGB Conc 33.5 g/dL (31.6-35.5); Mean Corpuscular Hemoglobin 28.9 pg (28.0-33.3); Mean Corpuscular Volume 86.1 fL (83.0-100.0); Mean Platelet Volume 9.9 fL (9.4-12.4); Monocytes # 1.2 K/mcL (0.0-1.3); Monocytes % 9.4 %; Neutrophils # 10.9 K/mcL (1.6-8.9); Platelet Count 192 K/mcL (140-400); Red Blood Count 4.61 M/mcL (4.19-5.50); Red Cell Distribution Width 14.4 % (11.5-14.5); Segmented Neutrophils % 84.4 %; White Blood Count 12.9 K/mcL (4.3-11.1)
[2021-05-17 08:59] LABS: Calcium 8.5 mg/dL (8.6-10.3); Magnesium 2.1 mg/dL (1.6-2.6); Phosphorous 4.6 mg/dL (2.7-4.5); Potassium 5.3 mEq/L (3.5-5.1)
[2021-05-17] MEDS: Pantoprazole 40 MG VIAL IVP SCH (09:53)
[2021-05-17] MEDS: polyethylene glycoL 3350 17 GM POWD.PACK PO SCH (09:53)
[2021-05-17] MEDS: SODIUM ZIRCONIUM CYCLOSILICATE 5 GM POWD.PACK PO SCH (09:53)
[2021-05-17] MEDS: predniSONE 20 MG TABLET PO SCH (09:54)
[2021-05-17] MEDS: Finasteride 5 MG TABLET PO SCH (09:54)
[2021-05-17] MEDS: Sennosides/Docusate Sodium TABLET PO SCH ×2 (09:54→20:11)
[2021-05-17] MEDS: Multivit/Ca/Min/Fe/FA 1 TAB TABLET PO SCH (09:54)
[2021-05-17] MEDS: carvediloL 25 MG TABLET PO SCH ×2 (09:55→15:30)
[2021-05-17] MEDS: *HR* Dabigatran 75 MG CAPSULE PO SCH ×2 (09:55→20:11)
[2021-05-17] MEDS: Isosorbide MONOnitrate (24 HR) 60 MG TAB.ER.24H PO SCH (09:55)
[2021-05-17] MEDS ORDERED: *HR* Dextrose 50 % in Water (Vial) 50 ML VIAL IVP ONE (10:21)
[2021-05-17] MEDS ORDERED: Insulin Human Regular 10 UNIT in 0.9 % Sodium Chloride 10 ML IV ONE (10:21)
[2021-05-17] MEDS: Chloraseptic Spray 177 ML BOTTLE MM PRN (15:30)
[2021-05-17] MEDS: Mirtazapine 15 MG TABLET PO SCH (20:11)
[2021-05-18 05:27] LABS: Basophils % 0.2 %; Eosinophils % 0.3 %; Hematocrit 40.1 % (37.5-50.1); Hemoglobin 13.7 g/dL (12.9-16.9); Immature Granulocytes % 1.1 % (0-4); Lymphocytes # 0.8 K/mcL (0.6-4.6); Mean Corpuscular HGB Conc 34.2 g/dL (31.6-35.5); Mean Corpuscular Hemoglobin 29.3 pg (28.0-33.3); Mean Corpuscular Volume 85.7 fL (83.0-100.0); Monocytes # 1.5 K/mcL (0.0-1.3); Monocytes % 11.3 %; Neutrophils # 10.6 K/mcL (1.6-8.9); Platelet Count 197 K/mcL (140-400); Red Blood Count 4.68 M/mcL (4.19-5.50); Red Cell Distribution Width 14.3 % (11.5-14.5); Segmented Neutrophils % 81.1 %; White Blood Count 13.1 K/mcL (4.3-11.1)
[2021-05-18 05:46] LABS: Calcium 8.5 mg/dL (8.6-10.3); Phosphorous 4.3 mg/dL (2.7-4.5); Potassium 4.9 mEq/L (3.5-5.1)
[2021-05-18] MEDS: Multivit/Ca/Min/Fe/FA 1 TAB TABLET PO SCH (07:46)
[2021-05-18] MEDS: predniSONE 20 MG TABLET PO SCH (07:46)
[2021-05-18] MEDS: Sennosides/Docusate Sodium TABLET PO SCH ×2 (07:46→20:01)
[2021-05-18] MEDS: Isosorbide MONOnitrate (24 HR) 60 MG TAB.ER.24H PO SCH (07:46)
[2021-05-18] MEDS: Finasteride 5 MG TABLET PO SCH (07:46)
[2021-05-18] MEDS: polyethylene glycoL 3350 17 GM POWD.PACK PO SCH (07:47)
[2021-05-18] MEDS: SODIUM ZIRCONIUM CYCLOSILICATE 5 GM POWD.PACK PO SCH (07:47)
[2021-05-18] MEDS: *HR* Dabigatran 75 MG CAPSULE PO SCH ×2 (07:47→20:00)
[2021-05-18] MEDS: carvediloL 25 MG TABLET PO SCH ×2 (07:47→16:19)
[2021-05-18] MEDS: Budesonide/Formoterol 160/4.5 1 PUFF INH IH SCH ×2 (08:16→20:19)
[2021-05-18] MEDS: Mirtazapine 15 MG TABLET PO SCH (20:00)
[2021-05-19 05:36] LABS: Basophils % 0.1 %; Eosinophils # 0.2 K/mcL (0.0-0.6); Eosinophils % 1.5 %; Hemoglobin 12.5 g/dL (12.9-16.9); Immature Granulocytes % 1.6 % (0-4); Lymphocytes # 1.2 K/mcL (0.6-4.6); Lymphocytes % 8.8 %; Mean Corpuscular HGB Conc 32.9 g/dL (31.6-35.5); Mean Corpuscular Hemoglobin 28.5 pg (28.0-33.3); Mean Corpuscular Volume 86.8 fL (83.0-100.0); Mean Platelet Volume 10.1 fL (9.4-12.4); Monocytes # 1.7 K/mcL (0.0-1.3); Monocytes % 11.9 %; Neutrophils # 10.6 K/mcL (1.6-8.9); Platelet Count 182 K/mcL (140-400); Red Blood Count 4.38 M/mcL (4.19-5.50); Red Cell Distribution Width 14.4 % (11.5-14.5); Segmented Neutrophils % 76.1 %; White Blood Count 13.9 K/mcL (4.3-11.1)
[2021-05-19 05:51] LABS: Potassium 4.7 mEq/L (3.5-5.1)
[2021-05-19 05:52] LABS: Calcium 8.1 mg/dL (8.6-10.3); Phosphorous 2.9 mg/dL (2.7-4.5)
[2021-05-19] MEDS: *HR* Dabigatran 75 MG CAPSULE PO SCH ×2 (09:26→20:58)
[2021-05-19] MEDS: SODIUM ZIRCONIUM CYCLOSILICATE 5 GM POWD.PACK PO SCH (09:26)
[2021-05-19] MEDS: polyethylene glycoL 3350 17 GM POWD.PACK PO SCH (09:26)
[2021-05-19] MEDS: Isosorbide MONOnitrate (24 HR) 60 MG TAB.ER.24H PO SCH (09:29)
[2021-05-19] MEDS: carvediloL 25 MG TABLET PO SCH ×2 (09:30→16:53)
[2021-05-19] MEDS: Finasteride 5 MG TABLET PO SCH (09:31)
[2021-05-19] MEDS: Sennosides/Docusate Sodium TABLET PO SCH ×2 (09:31→20:59)
[2021-05-19] MEDS: predniSONE 20 MG TABLET PO SCH (09:32)
[2021-05-19] MEDS: Multivit/Ca/Min/Fe/FA 1 TAB TABLET PO SCH (09:32)
[2021-05-19] MEDS: 0.9 % Sodium Chloride 1,000 ML IVC SCH ×2 (09:40→16:53)
[2021-05-19] MEDS: Budesonide/Formoterol 160/4.5 1 PUFF INH IH SCH ×2 (10:36→22:05)
[2021-05-19] MEDS: Mirtazapine 15 MG TABLET PO SCH (20:58)
[2021-05-20] MEDS: 0.9 % Sodium Chloride 1,000 ML IVC SCH ×3 (00:37→17:19)
[2021-05-20] MEDS: Chloraseptic Spray 177 ML BOTTLE MM PRN (00:37)
[2021-05-20 01:23] LABS: Basophils % 0.2 %; Eosinophils % 0.2 %; Hematocrit 35.8 % (37.5-50.1); Hemoglobin 12.2 g/dL (12.9-16.9); Immature Granulocytes % 1.6 % (0-4); Lymphocytes # 0.6 K/mcL (0.6-4.6); Lymphocytes % 4.8 %; Mean Corpuscular HGB Conc 34.1 g/dL (31.6-35.5); Mean Corpuscular Hemoglobin 29.5 pg (28.0-33.3); Mean Corpuscular Volume 86.5 fL (83.0-100.0); Mean Platelet Volume 10.1 fL (9.4-12.4); Monocytes # 1.3 K/mcL (0.0-1.3); Monocytes % 10.5 %; Neutrophils # 10.1 K/mcL (1.6-8.9); Platelet Count 178 K/mcL (140-400); Red Blood Count 4.14 M/mcL (4.19-5.50); Red Cell Distribution Width 14.4 % (11.5-14.5); Segmented Neutrophils % 82.7 %; White Blood Count 12.2 K/mcL (4.3-11.1)
[2021-05-20 01:47] LABS: Calcium 7.7 mg/dL (8.6-10.3); Magnesium 1.8 mg/dL (1.6-2.6); Phosphorous 3.3 mg/dL (2.7-4.5); Potassium 4.9 mEq/L (3.5-5.1)
[2021-05-20] MEDS: SODIUM ZIRCONIUM CYCLOSILICATE 5 GM POWD.PACK PO SCH (09:00)
[2021-05-20] MEDS: polyethylene glycoL 3350 17 GM POWD.PACK PO SCH (09:01)
[2021-05-20] MEDS: Isosorbide MONOnitrate (24 HR) 60 MG TAB.ER.24H PO SCH (09:04)
[2021-05-20] MEDS: *HR* HYDROmorphone 4 MG TABLET PO PRN ×3 (09:04→23:44)
[2021-05-20] MEDS: carvediloL 25 MG TABLET PO SCH ×2 (09:05→17:18)
[2021-05-20] MEDS: Multivit/Ca/Min/Fe/FA 1 TAB TABLET PO SCH (09:05)
[2021-05-20] MEDS: Sennosides/Docusate Sodium TABLET PO SCH ×2 (09:05→21:06)
[2021-05-20] MEDS: *HR* Dabigatran 75 MG CAPSULE PO SCH (09:05)
[2021-05-20] MEDS: Finasteride 5 MG TABLET PO SCH (09:05)
[2021-05-20] MEDS: Budesonide/Formoterol 160/4.5 1 PUFF INH IH SCH ×2 (09:34→22:07)
[2021-05-20] MEDS ORDERED: Magic Mouthwash 10 ML UD Cup PO PRN (11:13)
[2021-05-20] MEDS: Mirtazapine 15 MG TABLET PO SCH (21:01)
[2021-05-20] MEDS: Apixaban 5 MG TABLET PO SCH (21:02)
[2021-05-21] MEDS: 0.9 % Sodium Chloride 1,000 ML IVC SCH (00:44)
[2021-05-21] MEDS: Budesonide/Formoterol 160/4.5 1 PUFF INH IH SCH (07:31)
[2021-05-21] MEDS: SODIUM ZIRCONIUM CYCLOSILICATE 5 GM POWD.PACK PO SCH (08:36)
[2021-05-21] MEDS: polyethylene glycoL 3350 17 GM POWD.PACK PO SCH (08:36)
[2021-05-21] MEDS: Isosorbide MONOnitrate (24 HR) 60 MG TAB.ER.24H PO SCH (08:37)
[2021-05-21] MEDS: Sennosides/Docusate Sodium TABLET PO SCH (08:38)
[2021-05-21] MEDS: Multivit/Ca/Min/Fe/FA 1 TAB TABLET PO SCH (08:38)
[2021-05-21] MEDS: Apixaban 5 MG TABLET PO SCH (08:38)
[2021-05-21] MEDS: carvediloL 25 MG TABLET PO SCH ×2 (08:38→16:24)
[2021-05-21] MEDS: Finasteride 5 MG TABLET PO SCH (08:39)
[2021-05-21 15:46] VITALS: BP 125/84
[2021-05-21 17:15] LABS: Influenza A PCR Negative (Negative); Influenza B PCR Negative (Negative); Resp. Syncytial Virus PCR Negative (Negative); SARS-CoV-2 by PCR (In House) Negative (Negative)
== END 2021-05-21 18:25 | disposition other institution (70) | DRG 683 ==
LOC: SUATTDRO → EMEROOARM 08:27 → 2ANU 08:27 → SUATTDRO 14:59 → 2ANU 15:47 → SUATTDRO 05-12 13:24
PROVIDERS: ADMIT Internal Medicine; ATTEND Internal Medicine

== ENCOUNTER 2021-06-19 11:17 | Inpatient (IN) ==
[2021-06-19 11:56] LABS: Basophils # 0.1 K/mcL (0.0-0.2); Basophils % 0.4 %; Eosinophils % 0.1 %; Hematocrit 36.6 % (37.5-50.1); Hemoglobin 11.6 g/dL (12.9-16.9); Immature Granulocytes % 1.7 % (0-4); Lymphocytes # 0.5 K/mcL (0.6-4.6); Lymphocytes % 4.5 %; Mean Corpuscular HGB Conc 31.7 g/dL (31.6-35.5); Mean Corpuscular Hemoglobin 28.2 pg (28.0-33.3); Mean Corpuscular Volume 89.1 fL (83.0-100.0); Mean Platelet Volume 9.9 fL (9.4-12.4); Monocytes # 0.7 K/mcL (0.0-1.3); Monocytes % 6.3 %; Neutrophils # 9.9 K/mcL (1.6-8.9); Platelet Count 308 K/mcL (140-400); Red Blood Count 4.11 M/mcL (4.19-5.50); Red Cell Distribution Width 14.7 % (11.5-14.5); White Blood Count 11.4 K/mcL (4.3-11.1)
[2021-06-19 12:22] LABS: BUN/Creatinine Ratio 18 (6-26); Blood Urea Nitrogen 38 mg/dL (8-23); Calcium 8.8 mg/dL (8.6-10.3); Carbon Dioxide 25 mEq/L (23-29); Chloride 105 mEq/L (98-107); Glucose 105 mg/dL (70-105); Osmolality,Calculated 293 (280-300); Potassium 4.6 mEq/L (3.5-5.1); Sodium 137 mEq/L (136-145); Troponin I < 0.03 ng/mL (< 0.04); eGFR For African Americans 36 (> 60); eGFR For Non-African Americans 30 (> 60)
[2021-06-19] MEDS ORDERED: cefTRIAXone 1,000 MG in 0.9 % Sodium Chloride Mini Bag 100 ML IVPB ONE (13:25)
[2021-06-19] MEDS ORDERED: Acetaminophen 325 MG TABLET PO PRN (14:35)
[2021-06-19] MEDS ORDERED: Naloxone 0.4 MG/ML INJ IVP PRN (14:35)
[2021-06-19] MEDS ORDERED: Ondansetron 4 MG/2 ML VIAL IVP PRN (14:35)
[2021-06-19] MEDS ORDERED: *HR* HYDROcodone/Acet 5/325 mg TABLET PO PRN (14:35)
[2021-06-19] MEDS ORDERED: Ipratropium/Albuterol Neb 3 ML IH PRN (14:39)
[2021-06-19] MEDS: Ipratropium/Albuterol Neb 3 ML IH SCH ×2 (17:41→22:20)
[2021-06-19] MEDS: predniSONE 20 MG TABLET PO SCH (19:39)
[2021-06-19] MEDS: carvediloL 25 MG TABLET PO SCH (19:40)
[2021-06-19] MEDS: Azithromycin 500 MG in 0.9 % Sodium Chloride 250 ML IVPB SCH (19:40)
[2021-06-19] MEDS: Apixaban 2.5 MG TABLET PO SCH (21:27)
[2021-06-20 01:29] LABS: Basophils % 0.3 %; Eosinophils % 0.2 %; Hematocrit 31.4 % (37.5-50.1); Hemoglobin 10.5 g/dL (12.9-16.9); Immature Granulocytes % 1.4 % (0-4); Lymphocytes # 0.7 K/mcL (0.6-4.6); Lymphocytes % 6.2 %; Mean Corpuscular HGB Conc 33.4 g/dL (31.6-35.5); Mean Corpuscular Hemoglobin 29.4 pg (28.0-33.3); Monocytes # 1.2 K/mcL (0.0-1.3); Monocytes % 10.1 %; Neutrophils # 9.7 K/mcL (1.6-8.9); Platelet Count 307 K/mcL (140-400); Red Blood Count 3.57 M/mcL (4.19-5.50); Segmented Neutrophils % 81.8 %; White Blood Count 11.8 K/mcL (4.3-11.1)
[2021-06-20 01:49] LABS: Calcium 8.6 mg/dL (8.6-10.3); Magnesium 1.9 mg/dL (1.6-2.6); Potassium 4.1 mEq/L (3.5-5.1)
[2021-06-20] MEDS: Ipratropium/Albuterol Neb 3 ML IH SCH ×4 (03:38→21:45)
[2021-06-20] MEDS: cefTRIAXone 1,000 MG in Water for inj. (sterile) 10 ML IVP SCH (07:47)
[2021-06-20] MEDS: carvediloL 25 MG TABLET PO SCH ×2 (07:48→17:06)
[2021-06-20] MEDS: predniSONE 20 MG TABLET PO SCH (07:48)
[2021-06-20] MEDS: Apixaban 2.5 MG TABLET PO SCH ×2 (07:48→20:43)
[2021-06-20] MEDS ORDERED: Furosemide 20 MG/2 ML VIAL IVP SCH (09:00)
[2021-06-20] MEDS: Isosorbide MONOnitrate (24 HR) 60 MG TAB.ER.24H PO SCH (09:40)
[2021-06-20] MEDS: Budesonide/Formoterol 160/4.5 1 PUFF INH IH SCH ×2 (09:55→21:44)
[2021-06-20] MEDS ORDERED: Chloraseptic Spray 177 ML BOTTLE MM PRN (13:20)
[2021-06-20] MEDS: Azithromycin 500 MG in 0.9 % Sodium Chloride 250 ML IVPB SCH (15:49)
[2021-06-20] MEDS: Finasteride 5 MG TABLET PO SCH (17:06)
[2021-06-20] MEDS: MethylPREDNISolone 40 MG/ML VIAL IVP SCH (17:06)
[2021-06-20] MEDS: Mirtazapine 15 MG TABLET PO SCH (20:44)
[2021-06-21] MEDS: Ipratropium/Albuterol Neb 3 ML IH SCH ×4 (04:02→21:59)
[2021-06-21 05:10] LABS: Basophils % 0.2 %; Hematocrit 32.2 % (37.5-50.1); Hemoglobin 10.9 g/dL (12.9-16.9); Immature Granulocytes % 1.4 % (0-4); Lymphocytes # 0.5 K/mcL (0.6-4.6); Lymphocytes % 3.8 %; Mean Corpuscular HGB Conc 33.9 g/dL (31.6-35.5); Mean Corpuscular Hemoglobin 29.3 pg (28.0-33.3); Mean Corpuscular Volume 86.6 fL (83.0-100.0); Monocytes # 0.8 K/mcL (0.0-1.3); Monocytes % 6.3 %; Neutrophils # 11.1 K/mcL (1.6-8.9); Platelet Count 272 K/mcL (140-400); Red Blood Count 3.72 M/mcL (4.19-5.50); Red Cell Distribution Width 14.7 % (11.5-14.5); Segmented Neutrophils % 88.3 %; White Blood Count 12.6 K/mcL (4.3-11.1)
[2021-06-21 05:26] LABS: Calcium 8.7 mg/dL (8.6-10.3); Magnesium 1.9 mg/dL (1.6-2.6); Phosphorous 4.4 mg/dL (2.7-4.5); Potassium 4.3 mEq/L (3.5-5.1)
[2021-06-21] MEDS: MethylPREDNISolone 40 MG/ML VIAL IVP SCH ×2 (05:44→17:03)
[2021-06-21] MEDS: polyethylene glycoL 3350 17 GM POWD.PACK PO SCH (09:01)
[2021-06-21] MEDS: Isosorbide MONOnitrate (24 HR) 60 MG TAB.ER.24H PO SCH (09:02)
[2021-06-21] MEDS: carvediloL 25 MG TABLET PO SCH ×2 (09:03→17:03)
[2021-06-21] MEDS: cefTRIAXone 1,000 MG in Water for inj. (sterile) 10 ML IVP SCH (09:03)
[2021-06-21] MEDS: Apixaban 2.5 MG TABLET PO SCH ×2 (09:03→20:07)
[2021-06-21] MEDS: Furosemide 20 MG/2 ML VIAL IVP SCH (09:04)
[2021-06-21] MEDS: Budesonide/Formoterol 160/4.5 1 PUFF INH IH SCH ×2 (10:49→22:00)
[2021-06-21] MEDS: Finasteride 5 MG TABLET PO SCH (17:03)
[2021-06-21] MEDS: Mirtazapine 15 MG TABLET PO SCH (20:06)
[2021-06-22] MEDS: Ipratropium/Albuterol Neb 3 ML IH SCH ×4 (03:38→22:05)
[2021-06-22] MEDS: MethylPREDNISolone 40 MG/ML VIAL IVP SCH (05:19)
[2021-06-22 05:55] LABS: Calcium 8.6 mg/dL (8.6-10.3); Magnesium 1.9 mg/dL (1.6-2.6); Phosphorous 3.6 mg/dL (2.7-4.5); Potassium 4.6 mEq/L (3.5-5.1)
[2021-06-22] MEDS: Furosemide 20 MG/2 ML VIAL IVP SCH (07:48)
[2021-06-22] MEDS: carvediloL 25 MG TABLET PO SCH ×2 (07:49→17:59)
[2021-06-22] MEDS: levoFLOXacin 750 MG TABLET PO SCH (07:49)
[2021-06-22] MEDS: Apixaban 2.5 MG TABLET PO SCH ×2 (07:50→20:41)
[2021-06-22] MEDS: Isosorbide MONOnitrate (24 HR) 60 MG TAB.ER.24H PO SCH (07:50)
[2021-06-22] MEDS: polyethylene glycoL 3350 17 GM POWD.PACK PO SCH (07:51)
[2021-06-22] MEDS: Budesonide/Formoterol 160/4.5 1 PUFF INH IH SCH ×2 (09:55→22:05)
[2021-06-22] MEDS: Furosemide 40 MG TABLET PO SCH (10:16)
[2021-06-22] MEDS: Finasteride 5 MG TABLET PO SCH (17:59)
[2021-06-22] MEDS: Mirtazapine 15 MG TABLET PO SCH (20:40)
[2021-06-23] MEDS: Ipratropium/Albuterol Neb 3 ML IH SCH ×4 (04:04→21:51)
[2021-06-23 06:56] LABS: Basophils % 0.3 %; Eosinophils % 0.1 %; Hematocrit 34.6 % (37.5-50.1); Hemoglobin 11.3 g/dL (12.9-16.9); Immature Granulocytes % 2.1 % (0-4); Lymphocytes # 0.7 K/mcL (0.6-4.6); Lymphocytes % 5.5 %; Mean Corpuscular HGB Conc 32.7 g/dL (31.6-35.5); Mean Corpuscular Hemoglobin 28.5 pg (28.0-33.3); Mean Corpuscular Volume 87.4 fL (83.0-100.0); Mean Platelet Volume 9.9 fL (9.4-12.4); Monocytes # 1.7 K/mcL (0.0-1.3); Neutrophils # 10.1 K/mcL (1.6-8.9); Platelet Count 229 K/mcL (140-400); Red Blood Count 3.96 M/mcL (4.19-5.50); Red Cell Distribution Width 14.9 % (11.5-14.5); White Blood Count 12.8 K/mcL (4.3-11.1)
[2021-06-23 08:13] LABS: Calcium 8.6 mg/dL (8.6-10.3); Magnesium 1.9 mg/dL (1.6-2.6); Phosphorous 3.7 mg/dL (2.7-4.5); Potassium 4.7 mEq/L (3.5-5.1)
[2021-06-23] MEDS: Budesonide/Formoterol 160/4.5 1 PUFF INH IH SCH ×2 (10:56→21:51)
[2021-06-23] MEDS: predniSONE 20 MG TABLET PO SCH (11:15)
[2021-06-23] MEDS: polyethylene glycoL 3350 17 GM POWD.PACK PO SCH (11:15)
[2021-06-23] MEDS: carvediloL 25 MG TABLET PO SCH ×2 (11:15→19:04)
[2021-06-23] MEDS: Isosorbide MONOnitrate (24 HR) 60 MG TAB.ER.24H PO SCH (11:15)
[2021-06-23] MEDS: Furosemide 40 MG TABLET PO SCH (11:16)
[2021-06-23] MEDS: Apixaban 2.5 MG TABLET PO SCH ×2 (11:16→22:24)
[2021-06-23] MEDS: Sennosides/Docusate Sodium TABLET PO SCH ×2 (12:57→22:24)
[2021-06-23] MEDS: Finasteride 5 MG TABLET PO SCH (19:04)
[2021-06-23] MEDS: Mirtazapine 15 MG TABLET PO SCH (22:24)
[2021-06-24] MEDS: Ipratropium/Albuterol Neb 3 ML IH SCH ×4 (04:10→21:32)
[2021-06-24] MEDS: polyethylene glycoL 3350 17 GM POWD.PACK PO SCH (07:54)
[2021-06-24] MEDS: Sennosides/Docusate Sodium TABLET PO SCH ×2 (07:54→20:36)
[2021-06-24] MEDS: carvediloL 25 MG TABLET PO SCH ×2 (07:55→18:44)
[2021-06-24] MEDS: Isosorbide MONOnitrate (24 HR) 60 MG TAB.ER.24H PO SCH (07:55)
[2021-06-24] MEDS: predniSONE 20 MG TABLET PO SCH (07:56)
[2021-06-24] MEDS: Apixaban 2.5 MG TABLET PO SCH ×2 (07:57→20:37)
[2021-06-24] MEDS: Furosemide 40 MG TABLET PO SCH (07:57)
[2021-06-24] MEDS: levoFLOXacin 750 MG TABLET PO SCH (07:57)
[2021-06-24] MEDS: Budesonide/Formoterol 160/4.5 1 PUFF INH IH SCH ×2 (09:52→21:32)
[2021-06-24] MEDS: Finasteride 5 MG TABLET PO SCH (18:44)
[2021-06-24] MEDS: Mirtazapine 15 MG TABLET PO SCH (20:36)
[2021-06-25 03:03] LABS: Basophils % 0.3 %; Eosinophils % 0.1 %; Hematocrit 35.5 % (37.5-50.1); Hemoglobin 11.8 g/dL (12.9-16.9); Immature Granulocytes % 2.1 % (0-4); Lymphocytes # 0.7 K/mcL (0.6-4.6); Lymphocytes % 5.4 %; Mean Corpuscular HGB Conc 33.2 g/dL (31.6-35.5); Mean Corpuscular Hemoglobin 28.7 pg (28.0-33.3); Mean Corpuscular Volume 86.4 fL (83.0-100.0); Monocytes # 1.3 K/mcL (0.0-1.3); Monocytes % 9.7 %; Neutrophils # 11.1 K/mcL (1.6-8.9); Platelet Count 247 K/mcL (140-400); Red Blood Count 4.11 M/mcL (4.19-5.50); Red Cell Distribution Width 14.9 % (11.5-14.5); Segmented Neutrophils % 82.4 %; White Blood Count 13.5 K/mcL (4.3-11.1)
[2021-06-25 03:18] LABS: Calcium 8.3 mg/dL (8.6-10.3); Magnesium 1.9 mg/dL (1.6-2.6); Phosphorous 3.7 mg/dL (2.7-4.5); Potassium 4.6 mEq/L (3.5-5.1)
[2021-06-25] MEDS: Ipratropium/Albuterol Neb 3 ML IH SCH ×3 (03:52→15:33)
[2021-06-25] MEDS: Furosemide 40 MG TABLET PO SCH (08:42)
[2021-06-25] MEDS: Sennosides/Docusate Sodium TABLET PO SCH (08:44)
[2021-06-25] MEDS: Apixaban 2.5 MG TABLET PO SCH (08:44)
[2021-06-25] MEDS: predniSONE 20 MG TABLET PO SCH (08:46)
[2021-06-25] MEDS: carvediloL 25 MG TABLET PO SCH ×2 (08:46→16:13)
[2021-06-25] MEDS: Isosorbide MONOnitrate (24 HR) 60 MG TAB.ER.24H PO SCH (08:47)
[2021-06-25] MEDS: polyethylene glycoL 3350 17 GM POWD.PACK PO SCH (08:48)
[2021-06-25] MEDS: Budesonide/Formoterol 160/4.5 1 PUFF INH IH SCH (10:27)
[2021-06-25 14:18] VITALS: O2SAT 94
[2021-06-25] MEDS: Finasteride 5 MG TABLET PO SCH (16:38)
[2021-06-25 19:09] VITALS: BP 112/73; PULSE 101; TEMP 97.5
== END 2021-06-25 20:00 | DRG 190 ==
LOC: 3ANU 11:17 → EMEROOARM 11:17 → SUATTDRO 17:15 → 3ANU 18:11 → SUATTDRO 06-22 13:48
PROVIDERS: ADMIT Internal Medicine; ATTEND Hospitalist